=== PATIENT | male | born 1985 | race African-American/Black ===

== ENCOUNTER 2016-12-02 08:11 | Emergency (ER) | payer MEDICAID ==
[~2016-12-02] VITALS: Ht 182.9 cm; Wt 94.3 kg
[~2016-12-02 08:11] MED LIST: ALBU0.084 IN; FLUT250M2 INH; IPRA0.064; IPRAAER5 IN; PRE1T PO
[2016-12-02] MEDS ORDERED: methylPREDNISolone SOD SUCC 125 MG/2 ML VL IM ONE (09:00)
[2016-12-02] MEDS ORDERED: IBUPROFEN 800 MG TAB PO ONE (09:00)
[2016-12-02] MEDS ORDERED: IPRATROPIUM BROM 0.5 MG/2.5ML INH SOL NEB ONE (09:00)
[2016-12-02] MEDS ORDERED: ALBUTEROL SULF 2.5 MG/0.5ML(0.5%) NEB SOLN NEB ONE (09:00)
[2016-12-02 09:09] VITALS: BP 147/107
== END 2016-12-02 10:00 | disposition home or self-care (01) ==
LOC: ER 08:19
DX: J45.901 Unspecified asthma with (acute) exacerbation (principal); K08.89 Other specified disorders of teeth and supporting structures
CPT/HCPCS: 94640; 96372; 99283; J2930

== ENCOUNTER 2016-12-25 04:55 | Emergency (ER) | payer MEDICAID ==
[~2016-12-25] VITALS: Ht 185.4 cm; Wt 93.0 kg
[2016-12-25] MEDS ORDERED: IPRATROPIUM BROM 0.5 MG/2.5ML INH SOL NEB ONE ×2 (05:15→07:00)
[2016-12-25] MEDS ORDERED: ALBUTEROL SULF 2.5 MG/0.5ML(0.5%) NEB SOLN NEB ONE ×2 (05:15→07:00)
[2016-12-25] MEDS ORDERED: methylPREDNISolone SOD SUCC 125 MG/2 ML VL IM ONE (07:00)
[2016-12-25 07:30] VITALS: BP 158/99
== END 2016-12-25 08:09 | disposition home or self-care (01) ==
LOC: ER 05:00
DX: J45.901 Unspecified asthma with (acute) exacerbation (principal); Z76.0 Encounter for issue of repeat prescription
CPT/HCPCS: 94640; 96372; 99284; J2930

== ENCOUNTER 2017-03-14 18:34 | Emergency (ER) | payer MEDICAID ==
[~2017-03-14] VITALS: Ht 185.4 cm; Wt 95.3 kg
[2017-03-14] MEDS ORDERED: SODIUM CHLORIDE 0.9% 1,000 ML IV ONE ×2 (19:00→20:00)
[2017-03-14 19:23] LABS: Basophils # (auto) 0 uL; Basophils % (auto) 0.2 % (0.0-2.0); Eosinophils # (auto) 0 uL; Eosinophils % (auto) 0.1 % (0.0-7.0); Hematocrit 50.8 % (41.0-53.0); Hemoglobin 17.1 g/dL (13.5-17.5); Lymphocytes # (auto) 0.5 uL; Lymphocytes % (auto) 4.7 % (10.0-50.0); Mean Corpuscular Hemoglobin 30.4 pg (28.0-32.0); Mean Corpuscular Hgb Conc. 33.8 g/dL (32.0-36.0); Mean Platelet Volume 8.4 fL (7.4-10.4); Monocytes # (auto) 0.8 uL; Monocytes % (auto) 7.2 % (0.0-12.0); Neutrophils # (auto) 9.2 uL; Neutrophils % (auto) 87.8 % (37.0-80.0); Platelet Count (auto) 355 10^3/uL (140-450); Red Cell Distribution Width 12.6 % (11.6-16.0); White Blood Cell 10.5 10^3/uL (4.4-10.8)
[2017-03-14 19:38] LABS: Lactic Acid w/Reflex 3.3 mmol/L (0.4-2.0)
[2017-03-14 19:42] LABS: Albumin 4.1 g/dL (3.4-5.0); Alkaline Phosphatase 90 U/L (45-117); Anion Gap 13 (5-15); Aspartate Aminotransferase 24 U/L (15-37); BUN/Creatinine Ratio 12.8; Bilirubin, Total 1.7 mg/dL (0.2-1.0); Blood Urea Nitrogen 17 mg/dL (7-18); Carbon Dioxide 17 mmol/L (21-32); Chloride 106 mmol/L (98-107); GFR African American 81 mL/min; GFR Non-African American 67 mL/min; Glucose 150 mg/dL (74-106); Potassium 3.6 mmol/L (3.5-5.1); Sodium 136 mmol/L (136-145); Total Protein 8.1 g/dL (6.4-8.2)
[2017-03-14 19:52] LABS: REFLEX LACTIC ACID YES OR NO YES
[2017-03-14] MEDS ORDERED: ONDANSETRON HCL 4 MG/2 ML VIAL IV ONE (20:00)
[2017-03-14] MEDS ORDERED: IPRATROPIUM BROM 0.5 MG/2.5ML INH SOL NEB ONE (20:15)
[2017-03-14] MEDS ORDERED: ALBUTEROL SULF 2.5 MG/0.5ML(0.5%) NEB SOLN NEB ONE (20:15)
[2017-03-14 23:38] VITALS: BP 136/84
[2017-03-14] MEDS ORDERED: METOCLOPRAMIDE HCL 5MG/ml INJ 2ml VIAL IV ONE (23:45)
== END 2017-03-15 01:47 | disposition home or self-care (01) ==
LOC: ER 18:34
DX: T62.91XA Toxic effect of unspecified noxious substance eaten as food, accidental (unintentional), initial encounter (principal); E86.0 Dehydration; R55 Syncope and collapse; Z88.6 Allergy status to analgesic agent; J45.909 Unspecified asthma, uncomplicated; Y92.89 Other specified places as the place of occurrence of the external cause
CPT/HCPCS: 36415; 80053; 80307; 82962; 83605; 84484; 85025; 87040; 93005; 94640; 96361; 96374; 96375; 99285; J2405; J2765; J7030

== ENCOUNTER 2017-05-10 05:16 | Emergency (ER) | payer MEDICAID ==
[~2017-05-10] VITALS: Ht 182.9 cm; Wt 95.3 kg
[2017-05-10] MEDS ORDERED: IPRATROPIUM BROM 0.5 MG/2.5ML INH SOL NEB ONE ×2 (05:30→08:00)
[2017-05-10] MEDS ORDERED: ALBUTEROL SULF 2.5 MG/0.5ML(0.5%) NEB SOLN NEB ONE ×2 (05:30→08:00)
[2017-05-10 08:00] VITALS: BP 149/103
[2017-05-10] MEDS ORDERED: methylPREDNISolone SOD SUCC 125 MG/2 ML VL IM ONE (08:00)
[2017-05-11] MEDS ORDERED: MONT4CHW9 PO (04:56)
== END 2017-05-10 09:15 | disposition home or self-care (01) ==
LOC: ER 05:16
DX: J45.901 Unspecified asthma with (acute) exacerbation (principal)
CPT/HCPCS: 94640; 96372; 99284; J2930; J7030

== ENCOUNTER 2017-05-10 15:18 | Inpatient (IN) | payer MEDICAID ==
[~2017-05-10] VITALS: Ht 185.4 cm; Wt 96.0 kg
[2017-05-10] MEDS ORDERED: ALBUTEROL SULF 2.5 MG/0.5ML(0.5%) NEB SOLN NEB ONE ×4 (15:30→22:15)
[2017-05-10] MEDS ORDERED: IPRATROPIUM BROM 0.5 MG/2.5ML INH SOL NEB ONE (15:30)
[2017-05-10] MEDS ORDERED: methylPREDNISolone SOD SUCC 125 MG/2 ML VL IV ONE (15:30)
[2017-05-10] MEDS ORDERED: SODIUM CHLORIDE 0.9% 1,000 ML IV ONE ×2 (15:35)
[2017-05-10 15:47] LABS: Basophils # (auto) 0 uL; CONDITION Y; Eosinophils # (auto) 0 uL; Hematocrit 48.5 % (41.0-53.0); Hemoglobin 16.8 g/dL (13.5-17.5); Lymphocytes # (auto) 0.3 uL; Lymphocytes % (auto) 2.7 % (10.0-50.0); Mean Corpuscular Hemoglobin 31.1 pg (28.0-32.0); Mean Corpuscular Hgb Conc. 34.7 g/dL (32.0-36.0); Mean Corpuscular Volume 89.6 fL (80.0-100.0); Mean Platelet Volume 8.2 fL (7.4-10.4); Monocytes # (auto) 0 uL; Monocytes % (auto) 0.3 % (0.0-12.0); Neutrophils # (auto) 11.5 uL; Platelet Count (auto) 363 10^3/uL (140-450); White Blood Cell 11.9 10^3/uL (4.4-10.8)
[2017-05-10 15:57] LABS: INR 0.98 (0.9-1.15); Partial Thromboplastin Time 28.2 sec (22.64-33.71); Prothrombin Time 10.7 sec (9.37-12.3)
[2017-05-10 16:00] LABS: Albumin 4.4 g/dL (3.4-5.0); BUN/Creatinine Ratio 12.7; Calcium 9.4 mg/dL (8.5-10.1); Potassium 4.4 mmol/L (3.5-5.1)
[2017-05-10 16:03] LABS: Bilirubin, Total 0.7 mg/dL (0.2-1.0); Total Protein 8.8 g/dL (6.4-8.2)
[2017-05-10] MEDS ORDERED: cefTRIAXone 1GM/50ML D5W 50 ML IV ONE (17:15)
[2017-05-10] MEDS ORDERED: ALUM & MAG HYDROX-SIMETH LIQ(MAALOX) 30 ML PO PRN (17:45)
[2017-05-10] MEDS ORDERED: DOCUSATE SOD 100 MG CAP PO PRN (17:45)
[2017-05-10] MEDS ORDERED: ACETAMINOPHEN 325 MG TAB PO PRN (17:45)
[2017-05-10] MEDS ORDERED: ONDANSETRON HCL 4 MG/2 ML VIAL IV PRN (17:45)
[2017-05-10] MEDS: ALBUTEROL SULF 2.5 MG/0.5ML(0.5%) NEB SOLN NEB SCH ×2 (18:00→23:51)
[2017-05-10] MEDS ORDERED: methylPREDNISolone SOD SUCC 40 MG/ML VL IV SCH (18:00)
[2017-05-10] MEDS: SODIUM CHLORIDE 0.9% 1,000 ML IV SCH ×2 (18:40→19:40)
[2017-05-10] MEDS: HYDROcodone-ACET 5/325MG TAB PO PRN (21:06)
[2017-05-10] MEDS ORDERED: KETOROLAC TROMETH 30 MG/ML 1ML VIAL ONE (21:56)
[2017-05-10] MEDS ORDERED: KETOROLAC TROMETH 30 MG/ML 1ML VIAL IV ONE (22:00)
[2017-05-10] MEDS: BUDESONIDE (INHALATION) 0.5 MG/2 ML NEB NEB SCH (22:07)
[2017-05-10] MEDS ORDERED: ALBUTEROL SULF 2.5 MG/0.5ML(0.5%) NEB SOLN ONE (22:17)
[2017-05-11 00:14] VITALS: BP 150/99
[2017-05-11] MEDS: methylPREDNISolone SOD SUCC 40 MG/ML VL IV SCH ×5 (01:07→23:50)
[2017-05-11] MEDS: LORazepam 0.5 MG TAB PO PRN ×3 (01:48→18:08)
[2017-05-11] MEDS ORDERED: MONT4CHW9 PO (04:56)
[2017-05-11 05:51] VITALS: BP 149/90
[2017-05-11] MEDS: BUDESONIDE (INHALATION) 0.5 MG/2 ML NEB NEB SCH ×2 (06:25→22:51)
[2017-05-11] MEDS: ALBUTEROL SULF 2.5 MG/0.5ML(0.5%) NEB SOLN NEB SCH ×5 (06:25→22:50)
[2017-05-11 06:32] LABS: Basophils # (auto) 0 uL; Basophils % (auto) 0.1 % (0.0-2.0); CONDITION Y; Eosinophils # (auto) 0 uL; Hematocrit 43.5 % (41.0-53.0); Hemoglobin 14.9 g/dL (13.5-17.5); Lymphocytes # (auto) 0.9 uL; Lymphocytes % (auto) 8.8 % (10.0-50.0); Mean Corpuscular Hgb Conc. 34.2 g/dL (32.0-36.0); Mean Corpuscular Volume 90.7 fL (80.0-100.0); Mean Platelet Volume 8.6 fL (7.4-10.4); Monocytes # (auto) 0.3 uL; Monocytes % (auto) 2.5 % (0.0-12.0); Neutrophils # (auto) 9.1 uL; Neutrophils % (auto) 88.6 % (37.0-80.0); Platelet Count (auto) 324 10^3/uL (140-450); Red Cell Distribution Width 12.9 % (11.6-16.0); White Blood Cell 10.2 10^3/uL (4.4-10.8)
[2017-05-11 06:51] LABS: Potassium 4.1 mmol/L (3.5-5.1)
[2017-05-11 06:55] LABS: Albumin 3.8 g/dL (3.4-5.0); BUN/Creatinine Ratio 17.5; Calcium 8.7 mg/dL (8.5-10.1)
[2017-05-11 06:57] LABS: Bilirubin, Total 0.6 mg/dL (0.2-1.0); Total Protein 7.8 g/dL (6.4-8.2)
[2017-05-11 08:00] VITALS: BP 108/67
[2017-05-11] MEDS: cefTRIAXone 1GM/50ML D5W 50 ML IV SCH (10:37)
[2017-05-11 13:00] VITALS: BP 118/72
[2017-05-11] MEDS: HYDROcodone-ACET 5/325MG TAB PO PRN ×2 (13:56→18:08)
[2017-05-11] MEDS: SODIUM CHLORIDE 0.9% 1,000 ML IV SCH ×2 (13:57→23:47)
[2017-05-11 16:47] VITALS: BP 152/90
[2017-05-11 21:48] VITALS: BP 162/98
[2017-05-11] MEDS ORDERED: LACTULOSE 20Gm/30ML SOLN PO ONE (22:45)
[2017-05-11] MEDS ORDERED: KETOROLAC TROMETH 30 MG/ML 1ML VIAL IV PRN (22:45)
[2017-05-12] MEDS: ALBUTEROL SULF 2.5 MG/0.5ML(0.5%) NEB SOLN NEB SCH ×3 (02:38→10:06)
[2017-05-12] MEDS: methylPREDNISolone SOD SUCC 40 MG/ML VL IV SCH ×2 (05:04→11:22)
[2017-05-12 05:15] VITALS: BP 142/91
[2017-05-12 08:02] VITALS: BP 142/91
[2017-05-12 09:00] VITALS: BP 157/92
[2017-05-12] MEDS: BUDESONIDE (INHALATION) 0.5 MG/2 ML NEB NEB SCH (10:06)
[2017-05-12] MEDS: cefTRIAXone 1GM/50ML D5W 50 ML IV SCH (10:17)
[2017-05-12] MEDS: SODIUM CHLORIDE 0.9% 1,000 ML IV SCH (10:20)
[2017-05-12] MEDS ORDERED: BUDESONIDE (INHALATION) 0.5 MG/2 ML NEB NEB ONE (13:15)
[2017-05-12] MEDS ORDERED: ALBUTEROL SULF 2.5 MG/0.5ML(0.5%) NEB SOLN NEB ONE (13:15)
[2017-05-12 13:26] VITALS: BP 142/91
[2017-05-12] MEDS ORDERED: PRE5T GT (14:49)
== END 2017-05-12 13:50 | disposition home or self-care (01) | DRG 133 ==
LOC: ER 15:25 → TELE 15:26 → CENTRAL 19:37
PROVIDERS: ADMIT Internal Medicine; ATTEND Internal Medicine
DX: J96.01 Acute respiratory failure with hypoxia (principal); J45.41 Moderate persistent asthma with (acute) exacerbation; F41.9 Anxiety disorder, unspecified; Z82.5 Family history of asthma and other chronic lower respiratory diseases; Z82.49 Family history of ischemic heart disease and other diseases of the circulatory system; I25.10 Atherosclerotic heart disease of native coronary artery without angina pectoris; Z71.89 Other specified counseling; Z88.6 Allergy status to analgesic agent
CPT/HCPCS: 36415; 71020; 80053; 84484; 85025; 85610; 85730; 94640; 96361; 96365; 96375; J0696; J1885

== ENCOUNTER 2017-05-19 21:48 | Emergency (ER) | payer MEDICAID ==
[~2017-05-19] VITALS: Ht 182.9 cm; Wt 95.3 kg
[~2017-05-19 21:48] MED LIST changes: +MONT4CHW9 PO; -PRE1T PO; +PRE5T GT
[2017-05-19] MEDS ORDERED: IPRATROPIUM BROM 0.5 MG/2.5ML INH SOL NEB ONE (22:15)
[2017-05-19] MEDS ORDERED: methylPREDNISolone SOD SUCC 125 MG/2 ML VL IV ONE (22:15)
[2017-05-19] MEDS ORDERED: ALBUTEROL SULF 2.5 MG/0.5ML(0.5%) NEB SOLN NEB ONE (22:15)
[2017-05-20] MEDS ORDERED: IPRATROPIUM BROM 0.5 MG/2.5ML INH SOL NEB ONE ×2 (01:45→07:45)
[2017-05-20] MEDS ORDERED: ALBUTEROL SULF 2.5 MG/0.5ML(0.5%) NEB SOLN NEB ONE ×2 (01:45→07:45)
[2017-05-20 04:45] LABS: Basophils # (auto) 0 uL; Basophils % (auto) 0.1 % (0.0-2.0); CONDITION Y; Eosinophils # (auto) 0 uL; Hematocrit 46.2 % (41.0-53.0); Lymphocytes # (auto) 0.6 uL; Lymphocytes % (auto) 5.8 % (10.0-50.0); Mean Corpuscular Hemoglobin 31.3 pg (28.0-32.0); Mean Corpuscular Hgb Conc. 34.6 g/dL (32.0-36.0); Mean Corpuscular Volume 90.5 fL (80.0-100.0); Mean Platelet Volume 8.4 fL (7.4-10.4); Monocytes # (auto) 0.1 uL; Monocytes % (auto) 0.6 % (0.0-12.0); Neutrophils # (auto) 10.2 uL; Neutrophils % (auto) 93.5 % (37.0-80.0); Platelet Count (auto) 351 10^3/uL (140-450); Red Cell Distribution Width 12.3 % (11.6-16.0); White Blood Cell 10.9 10^3/uL (4.4-10.8)
[2017-05-20 04:58] LABS: Albumin 3.9 g/dL (3.4-5.0); Anion Gap 12 (5-15); Blood Urea Nitrogen 16 mg/dL (7-18); Calcium 8.8 mg/dL (8.5-10.1); Carbon Dioxide 21 mmol/L (21-32); Chloride 108 mmol/L (98-107); Glucose 149 mg/dL (74-106); Potassium 4.1 mmol/L (3.5-5.1); Sodium 141 mmol/L (136-145)
[2017-05-20 05:00] LABS: Aspartate Aminotransferase 22 U/L (15-37); GFR African American 113 mL/min; GFR Non-African American 93 mL/min
[2017-05-20 05:04] LABS: Alkaline Phosphatase 72 U/L (45-117); Bilirubin, Total 0.7 mg/dL (0.2-1.0); Total Protein 7.7 g/dL (6.4-8.2)
[2017-05-20 05:41] VITALS: BP 140/77
== END 2017-05-20 08:28 | disposition home or self-care (01) ==
LOC: ER 21:52
DX: J45.901 Unspecified asthma with (acute) exacerbation (principal); F12.10 Cannabis abuse, uncomplicated
CPT/HCPCS: 36415; 71010; 80053; 84484; 85025; 94640; 96374; 99285; J2930

== ENCOUNTER 2024-10-11 13:31 | Inpatient (IN) | payer MEDICAID ==
[~2024-10-11] VITALS: Ht 185.4 cm; Wt 112.5 kg
[~2024-10-11 13:31] MED LIST changes: +MONT4CHW74 PO; -MONT4CHW9 PO
--- NOTE | 2024-10-11 13:55 | ED.PDOC ---
GI ASSESSMENT HPI Comments 39 year old male presents to the ED with a chief complaint of abdominal pain onset 3 weeks ago. Patient states he began experiencing abdominal pain with distention and shortness of breath about 3 weeks ago. Patient is currently awaiting an appointment with a Digital Media Strategist, as he was told from prior hospitalizations he may have CHF. He is on Lasix 20 mg PO daily. For the past week he began taking 40 mg Lasix Po and noticed his shortness of breath improved and he is producing more urine but is still experiencing abdominal pain with distention, constipation, nausea. He also reports a 30 lb weight gain in the past 3 weeks. Past medical history of HTN, Asthma and denies chest pain, vomiting, diarrhea, headache, dizziness. No other symptoms or modifying factors present at this time. Time Seen by MD: 13:40 Primary Care Provider: LUBA Tavares Notes: Medications, Allergies Allergies: Coded Allergies: Aspirin (Unverified Allergy, Unknown, 10/06/16) Home Meds Active Scripts Prednisone (PREDNISONE) 5 Mg Tb, 5 MG GT DAILY, #5 Prov:SHARI VILLEGAS MD 05/12/17 Reported Medications Montelukast Sodium (Singulair) 4 Mg Chw, 1 TAB PO DAILY, #30 TAB 5 Refills 05/11/17 Fluticasone-Salmeterol (Advair Diskus 250/50) 1 Puff Ih, 1 PUFF INH BID, #3 INHALER 3 Refills 07/09/16 Ipratropium [place] (Atrovent) 0.06 % Daisy, 2 SPRAY NA QID, #15 ML 5 Refills 07/09/16 Ipratropium-Albuterol (Combivent) Aer, 1 IN, AER 07/09/16 Albuterol Sulfate (Albuterol Sulfate) 0.083 % Neb, 0.083 % IN 07/09/16 Information Source: Patient Mode of Arrival: Ambulatory Timing: Weeks Duration: Since onset Prehospital treatment: None Severity: Moderate Recent: None Recent Hx of: Constipation Pain Location: Diffuse Associated sign and symptoms: Nausea, Constipation, Abdominal Pain Past Medical History PAST MEDICAL HISTORY: Asthma, HTN Surgical History: Denies all surgeries Family History Family History: Unobtainable Social History Smoker: Non-Smoker Alcohol: Occasionally Drugs: Marijuana Lives In: Home Constitutional: denies: chills, diaphoresis, fatigue, fever, malaise, sweats, weakness, others EENTM: denies: blurred vision, double vision, ear bleeding, ear discharge, ear drainage, ear pain, ear ringing, eye pain, eye redness, hearing loss, mouth pain, mouth swelling, nasal discharge, nose bleeding, nose congestion, nose pain, photophobia, tearing, throat pain, throat swelling, voice changes, others Respiratory: reports: shortness of breath; denies: cough, hemoptysis, orthopnea, SOB at rest, SOB with excertion, stridor, wheezing, others Cardiovascular: denies: chest pain, dizzy spells, diaphoresis, Dyspnea on exertion, edema, irregular heart beat, left arm pain, lightheadedness, palpitations, PND, syncope, others Gastrointestinal: reports: abdomen distended, abdominal pain, constipated, nausea; denies: blood streaked bowels, diarrhea, dysphagia, difficulty swallowing, hematemesis, melena, poor appetite, poor fluid intake, rectal b leeding, rectal pain, vomiting, others Genitourinary: denies: burning, dysuria, flank pain, frequency, hematuria, incontinence, penile discharge, penile sore, pain, testicle pain, testicle swelling, urgency, others Neurological: denies: dizziness, fainting, headache, left sided numbness, left sided weakness, numbness, paresthesia, pre-existing deficit, right sided numbness, right sided weakness, seizure, speech problems, tingling, tremors, weakness, others Musculoskeletal: denies: back pain, gout, joint pain, joint swelling, muscle pain, muscle stiffness, neck pain, others Integumetry: denies: bruises, change in color, change in hair/nails, dryness, laceration, lesions, lumps, rash, wounds, others Allergic/Immunocompromised: denies: Difficulty Healing, Frequent Infections, Hi ves, Itching, others Hematologic/Lymphatic: denies: anemia, blood clots, easy bleeding, easy bruising, swollen glands, others Endocrine: denies: excessive hunger, excessive sweating, excessive thirst, excessive urination, flushing, intolerance to cold, intolerance to heat, unexplained weight gain, unexplained weight loss, others Psychiatric: denies: anxiety, bipolar disorder, depression, hopeless, panic disorder, schizophrenia, sleepless, suicidal, others All Other Systems: Reviewed and Negative Physical Exam General Appearance: No Apparent Distress HEENT: Other (Pupils symmetric, no facial asymmetry, moist mucous membranes) Neck: Full Range of Motion, Normal Inspection Respiratory: Lungs Clear, No Accessory Muscle Use, No Respiratory Distress, Normal Breath Sounds Cardiovascular: No Edema, No JVD, Regular Rate/Rhythm Breast Exam: Deferred Gastrointestinal: Distended, Tenderness (Generalized tenderness to palpation, greatest in the epigastric and bilateral upper quadrant areas) Genitalia: Deferred Pelvic: Deferred Rectal: Deferred Extremities: Normal inspection, Normal range of motion, Non-tender, No pedal edema Neurologic: Alert (Oriented x4), Normal Affect, Normal Mood, Other ( Ambulatory without difficulty. No gross focal deficit.) Cerebellar Function: NOT DONE Reflexes: NOT DONE Skin: Dry, Normal Color, Warm Lymphatic: NOT DONE Was a procedure done? Was a procedure done?: No GI differential Dx Differential Diagnosis: Constipation, Diverticular disease, Gastroenteritis, Inflammatory BD, Urinary Obstruction, UTI, Electrolyte Imbalance, Food Poisoning, Bacterial, Parasitic, Viral, Impaction, Renal Failure Other Differential Diagnosis Fluid retention/ascites, CHF exacerbation, among others X-Ray, Labs, Meds, VS Vital Signs Date Time Temp Pulse Resp B/P (MAP) Pulse Ox O2 Delivery O2 Flow Rate FiO2 10/11/24 14:59 130/90 10/11/24 14:59 107 18 130/90 10/11/24 14:51 105 18 130/90 (103) 96 10/11/24 14:51 105 18 96 Room Air 10/11/24 14:28 98.5 104 16 136/91 (106) 97 Lab Test 10/11/24 15:22 10/11/24 14:12 Range/Units Troponin I High Sensitivity 14 12 </=54 ng/L White Blood Count 10.3 4.4-10.8 10^3/uL Red Blood Count 4.98 4.5-5.90 10^6/uL Hemoglobin 15.7 13.5-17.5 g/dL Hematocrit 45.4 41.0-53.0 % Mean Corpuscular Volume 91.2 80.0-100.0 fL Mean Corpuscular Hemoglobin 31.6 28.0-32.0 pg Mean Corpuscular Hemoglobin Concent 34.7 32.0-36.0 g/dL Red Cell Distribution Width 13.2 11.8-14.3 % Platelet Count 310 140-450 10^3/uL Mean Platelet Volume 8.5 6.9-10.8 fL Neutrophils (%) (Auto) 66.7 37.0-80.0 % Lymphocytes (%) (Auto) 22.8 10.0-50.0 % Monocytes (%) (Auto) 6.4 0.0-12.0 % Eosinophils (%) (Auto) 2.9 0.0-7.0 % Basophils (%) (Auto) 1.2 0.0-2.0 % Neutrophils # (Auto) 6.9 1.6-8.6 10 ^3/uL Lymphocytes # (Auto) 2.4 0.4-5.4 10 ^3/uL Monocytes # (Auto) 0.7 0-1.3 10 ^3/uL Eosinophils # (Auto) 0.3 0-0.8 10 ^3/uL Basophils # (Auto) 0.1 0-0.2 10 ^3/uL Nucleated Red Blood Cells 0.1 % Sodium Level 140 136-145 mmol/L Potassium Level 4.3 3.5-5.1 mmol/L Chloride Level 106 98-107 mmol/L Carbon Dioxide Level 24 20-31 mmol/L Anion Gap 10 5-15 Blood Urea Nitrogen 14 9-23 mg/dL Creatinine 1.01 0.700-1.30 mg/dL Glomerular Filtration Rate Calc 98 >90 mL/min BUN/Creatinine Ratio 13.9 10.0-20.0 Serum Glucose 108 H 74-106 mg/dL Calcium Level 10.2 8.7-10.4 mg/dL Total Bilirubin 1.2 H 0.2-1.0 mg/dL Aspartate Amino Transferase (AST) 26 13-40 U/L Alanine Aminotransferase (ALT) 66 H 7-40 U/L Alkaline Phosphatase 97 46-116 U/L B-Type Natriuretic Peptide 265.44 0-100 pg/mL Total Protein 7.3 5.7-8.2 g/dL Albumin 4.7 3.2-4.8 g/dL Lipase 61 H 12-53 U/L Current Medications Medications (Trade) Dose Ordered Sig/Gi Route Start Time Stop Time Status Last Admin Morphine Sulfate 4 mg ONCE ONCE IV 10/11/24 14:00 10/11/24 14:01 DC 10/11/24 14:59 Ondansetron HCl (Zofran) 4 mg ONCE ONCE IV 10/11/24 14:00 10/11/24 14:01 DC 10/11/24 14:57 Furosemide (Lasix Injection) 40 mg ONCE ONCE IV 10/11/24 14:00 10/11/24 14:01 DC 10/11/24 14:59 PROCEDURE(s): ABPL - CT AB PEL WO CON-NO ORAL OR IV REASON: abdominal pain and distention ORDER NUMBER(s): [id number], ACCESSION NUMBER(s): [id number] Procedure: CT CT AB PEL WO CON-NO ORAL OR IV 10/11/2024 02:15 PM Indication: abdominal pain and distention Comparison Study: None available at time of dictation. Technique: Axial images were obtained and reformatted in coronal and sagittal planes. All CT scans at this medical facility are performed using dose modulation techniques as appropriate to a performed exam including the following: Automated exposure control was utilized; adjustment of the MA and/or KV according to patient size; and use of iterative reconstruction technique. CT Dose: CTDI volume is 22.57 mGy. Dose-length product is 1174.58 mGy*cm FINDINGS: Lower Chest: Trace right pleural effusion. Mild cardiomegaly. No pulmonary opacity. Hepatobiliary: Unremarkable. Spleen: Unremarkable. Pancreas: Unremarkable. Adrenal Glands: Unremarkable. tract: The kidneys are normal in size bilaterally without hydronephrosis . A 6 mm obstructing stone is seen midpole right kidney. The urinary bladder is unremarkable. GI tract: The stomach is grossly normal in appearance. No evidence of small bowel obstruction. The large bowel is unremarkable. The appendix is normal. Lymphatics: No mesenteric, retroperitoneal or periportal lymphadenopathy. Vasculature: The abdominal aorta is normal in in caliber. Pelvic Organs: Unremarkable Bones/soft tissues: No acute abnormality. Old healed fracture of the right pubic rami the left sacrum. A metallic clip noted in the left iliac bone. Other: None. IMPRESSION: 1. No CT evidence for acute intra-abdominal or intrapelvic process. 2. Trace right pleural effusion. No evidence of pneumonia. Mild cardiomegaly noted. X-Ray, Labs, Meds, VS Comment 39-year-old male with a history of asthma, hypertension and possible CHF complaining of abdominal pain, distention and fluid retention/weight gain despite taking Lasix Vitals remarkable for heart rate 104, BP 136/91 Exam remarkable for abdominal distention and upper abdominal tenderness to palpation. Rhythm strip currently interpreted by me: Sinus rhythm, rate 107, no ectopy. CT abdomen and pelvis: IMPRESSION: 1. No CT evidence for acute intra-abdominal or intrapelvic process. 2. Trace right pleural effusion. No evidence of pneumonia. Mild cardiomegaly noted. CBC normal, comprehensive metabolic panel remarkable for total bilirubin 1.2, ALT 66, otherwise normal Troponin negative BNP 265.44 Lipase 61 Patient treated with the following in the ED: Lasix 40 mg IV, morphine 4 mg IV, Zofran 4 mg IV On re-evaluation, patient states his pain has improved. Vitals are stable. Plan is to admit the patient for Cardiology and GI evaluation. Time of 1ST Reevaluation: 14:10 Reevaluation 1ST: Unchanged Patient Education/Counseling: Diagnosis, Treatment, Prognosis Family Education/Counseling: No Family Present Additional Information HI Data VOL/Complexity Ordered tests: LAB, PHA, CT, reviewed results: TROP, TROP, TROP, CBC, CMP, LIPASE, UA, BNP Interpreted results: CT Discuss tx/ results: patient, medical personnel Departure 1 Departure Time of Disposition: 17:00 Impression: Primary Impression: CHF (congestive heart failure) Qualified Codes: I50.9 - Heart failure, unspecified Additional Impression: Pancreatitis, acute Qualified Codes: K85.90 - Acute pancreatitis without necrosis or infection, unspecified Disposition: 09 ADMITTED INPATIENT Admit to: Med Surg Condition: Fair Critical Care Note Critical Care Time?: No Stability Stability form required: No Heart Score Heart Score: Heart Score Response (Comments) Value History N/A 0 EKG N/A 0 Age N/A 0 Risk Factors N/A 0 Troponin N/A 0 Total 0 I personally scribed for JACKELIN LOWE MD ([email or web address]) on 10/11/24 at 13:55. Electronically submitted by Silvia Cruz ([email or web address]). I personally scribed for JACKELIN LOWE MD ([email or web address]) on 10/11/24 at 13:58. Electronically submitted by Silvia Cruz ([email or web address]). JACKELIN LOWE MD Oct 11, 2024 13:55
[2024-10-11 14:39] LABS: Basophils # (auto) 0.1 10 ^3/uL (0-0.2); Basophils % (auto) 1.2 % (0.0-2.0); Eosinophils # (auto) 0.3 10 ^3/uL (0-0.8); Eosinophils % (auto) 2.9 % (0.0-7.0); Hematocrit 45.4 % (41.0-53.0); Hemoglobin 15.7 g/dL (13.5-17.5); Lymphocytes # (auto) 2.4 10 ^3/uL (0.4-5.4); Lymphocytes % (auto) 22.8 % (10.0-50.0); Mean Corpuscular Hemoglobin 31.6 pg (28.0-32.0); Mean Corpuscular Hgb Conc. 34.7 g/dL (32.0-36.0); Mean Corpuscular Volume 91.2 fL (80.0-100.0); Monocytes # (auto) 0.7 10 ^3/uL (0-1.3); Monocytes % (auto) 6.4 % (0.0-12.0); Neutrophils # (auto) 6.9 10 ^3/uL (1.6-8.6); Neutrophils % (auto) 66.7 % (37.0-80.0); Nucleated Red Blood Cells % 0.1 %; Platelet Count (auto) 310 10^3/uL (140-450); Red Blood Cells 4.98 10^6/uL (4.5-5.90); Red Cell Distribution Width 13.2 % (11.8-14.3); White Blood Cell 10.3 10^3/uL (4.4-10.8)
[2024-10-11] MEDS: ONDANSETRON HCL 4 MG/2 ML VIAL IV ONE (14:57)
[2024-10-11 14:58] LABS: Albumin 4.7 g/dL (3.2-4.8); Alkaline Phosphatase 97 U/L (46-116); Anion Gap 10 (5-15); Aspartate Aminotransferase 26 U/L (13-40); BUN/Creatinine Ratio 13.9 (10.0-20.0); Blood Urea Nitrogen 14 mg/dL (9-23); Calcium 10.2 mg/dL (8.7-10.4); Carbon Dioxide 24 mmol/L (20-31); Chloride 106 mmol/L (98-107); Potassium 4.3 mmol/L (3.5-5.1); Sodium 140 mmol/L (136-145); Total Protein 7.3 g/dL (5.7-8.2)
[2024-10-11] MEDS: MORPHINE SULFATE 4 MG/ML SYR/VIAL IV ONE (14:59)
[2024-10-11] MEDS: FUROSEMIDE 40 MG/4 ML VIAL IV ONE (14:59)
[2024-10-11 15:01] LABS: Alanine Aminotransferase 66 U/L (7-40); Bilirubin, Total 1.2 mg/dL (0.2-1.0); Glucose 108 mg/dL (74-106); Lipase 61 U/L (12-53)
--- NOTE | 2024-10-11 15:49 | DVH ---
Procedure: CT CT AB PEL WO CON-NO ORAL OR IV 10/11/2024 02:15 PM Indication: abdominal pain and distention Comparison Study: None available at time of dictation. Technique: Axial images were obtained and reformatted in coronal and sagittal planes. All CT scans at this medical facility are performed using dose modulation techniques as appropriate t o a performed exam including the following: Automated exposure control was utilized; adjustment of th e MA and/or KV according to patient size; and use of iterative reconstruction technique. CT Dose: CTDI volume is 22.57 mGy. Dose-length product is 1174.58 mGy*cm FINDINGS: Lower Chest: Trace right pleural effusion. Mild cardiomegaly. No pulmonary opacity. Hepatobiliary: Unremarkable. Spleen: Unremarkable. Pancreas: Unremarkable. Adrenal Glands: Unremarkable. tract: The kidneys are normal in size bilaterally without hydronephrosis . A 6 mm obstructing sto ne is seen midpole right kidney. The urinary bladder is unremarkable. GI tract: The stomach is grossly normal in appearance. No evidence of small bowel obstruction. The la rge bowel is unremarkable. The appendix is normal. Lymphatics: No mesenteric, retroperitoneal or periportal lymphadenopathy. Vasculature: The abdominal aorta is normal in in caliber. Pelvic Organs: Unremarkable Bones/soft tissues: No acute abnormality. Old healed fracture of the right pubic rami the left sacrum . A metallic clip noted in the left iliac bone. Other: None. IMPRESSION: 1. No CT evidence for acute intra-abdominal or intrapelvic process. 2. Trace right pleural effusion. No evidence of pneumonia. Mild cardiomegaly noted.
[2024-10-11] MEDS ORDERED: ONDANSETRON HCL 4 MG/2 ML VIAL IV PRN (19:45)
[2024-10-11] MEDS ORDERED: ACETAMINOPHEN 325 MG TAB PO PRN (19:45)
[2024-10-11 20:11] VITALS: BP 127/86; PULSE 94; RESP 20; TEMP 98.2; O2SAT 99
[2024-10-11] MEDS ORDERED: IPRATROPIUM BROM 0.5 MG/2.5ML INH SOL NEB PRN (20:15)
[2024-10-11] MEDS ORDERED: SENNA 8.6 MG TAB PO PRN (20:15)
--- NOTE | 2024-10-11 20:56 | DVH ---
EXAM: XY CHEST PORTABLE CLINICAL HISTORY: admission TECHNIQUE: Single AP view of the chest WID: COMPARISON: None FINDINGS: Lines and tubes: No Chest: Mild cardiomegaly and mild pulmonary vascular congestion No pleural effusion, pneumothorax, or consolidation. The osseous structures are grossly intact. IMPRESSION: Mild cardiomegaly and pulmonary vascular congestion
[2024-10-11 21:00] LABS: INR 1.18 (0.9-1.15); Prothrombin Time 12.4 sec (9.3-11.8)
--- NOTE | 2024-10-11 22:10 | DVH ---
US ABDOMEN COMPLETE SONOGRAM HISTORY: elevated lipase, abdominal pain COMPARISON: None TECHNIQUE: Transverse and longitudinal grayscale and color sonographic images were obtained of the ab domen. FINDINGS: Liver: - Size: 18.0 cm - Echogenicity: Heterogenous - Surface Contour: Smooth - Liver Lesion(s): None - Portal Vein: Patent and forward flowing. - Bile Ducts: Normal. The common bile duct measures 3.9 mm. Gallbladder: Sludge is visualized.. The sonographic Ash sign is negative. Pancreas: Not seen. Spleen: - Size: 9.8 cm Kidneys: - Right kidney size: 9.3 cm. There is no hydronephrosis, renal calculi, or mass lesion. - Left kidney size: 11.9 cm. There is no hydronephrosis, renal calculi, or mass lesion. Aorta and Inferior Vena Cava: The visualized portions of the abdominal aorta and intrahepatic vena ca va are normal. Other: None IMPRESSION: Gallbladder sludge visualized.
--- NOTE | 2024-10-12 02:12 | DVHHP2 ---
Admitting Diagnosis: CHF, Fluid overload History of Present Illness History Source: Patient Exam Limitations: No limitations HPI Mr. Festus Davis is a 39 year old male with a history of hypertension and asthma presents with a chief complaint of abdominal pain onset 3 weeks ago. Patient states he began experiencing abdominal pain with distention and shortness of breath about 3 weeks ago. Patient is currently awaiting an appointment with a Ammunition Components Inspector, as he was told from prior hospitalizations he may have CHF. He is on Lasix 20 mg PO daily. For the past week he began taking 40 mg Lasix Po and noticed his shortness of breath improved and he is producing more urine but is still experiencing abdominal pain with distention, constipation, nausea. He also reports a 30 lb weight gain in the past 3 weeks. Patient denies chest pain, vomiting, diarrhea, headache, dizziness. Home Meds Active Scripts Prednisone (PREDNISONE) 5 Mg Tb, 5 MG GT DAILY, #5 Prov:SHARI VILLEGAS MD 05/12/17 Reported Medications Montelukast Sodium (Singulair) 4 Mg Chw, 1 TAB PO DAILY, #30 TAB 5 Refills 05/11/17 Fluticasone-Salmeterol (Advair Diskus 250/50) 1 Puff Ih, 1 PUFF INH BID, #3 INHALER 3 Refills 07/09/16 Ipratropium [place] (Atrovent) 0.06 % Daisy, 2 SPRAY NA QID, #15 ML 5 Refills 07/09/16 Ipratropium-Albuterol (Combivent) Aer, 1 IN, AER 07/09/16 Albuterol Sulfate (Albuterol Sulfate) 0.083 % Neb, 0.083 % IN 07/09/16 Past Medical History Cardiac: HTN Pulmonary: Asthma Central Nervous System: No pertinent Hx GI: No pertinent Hx Hemotology/Oncology: No pertinent Hx Hepatobiliary: No pertinent Hx Psychiatric: No pertinent Hx Musculoskeletal: No pertinent Hx Rheumotologic: No pertinent Hx Infectious Disease: No peritnent Hx ENT: No pertinent Hx Renal/: No pertinent Hx Endocrine: No pertinent Hx Dermatology: No pertinent Hx Patient Family History: Family history: Asthma G8 FATHER Family history: Hypertension G8 MOTHER G8 FATHER Smoker: No Hx (Negative) Alocohol: None Drugs: None Lives with: With family Domestic Violence: Neg Review of Systems Constitutional: Other (weight gain 30 lbs in 3 weeks) Ears, Nose, & Throat: No symptom reported Eyes: No symptom reported Pulmonary/Respiratory: No symptom reported Cardiovascular: No symptom reported Gastrointestinal: Abdominal Pain Genitourinary: No symptom reported Musculoskeletal: No symptom reported Skin: No symptom reported Psychiatric: No symptom reported Endocrine: No symptom reported Hemotologic/Lymphatic: No symptom reported H&P Exam Vital Signs Vital Signs Date Time Temp Pulse Resp B/P (MAP) Pulse Ox O2 Delivery O2 Flow Rate FiO2 10/11/24 20:11 98.2 94 20 127/86 99 21 98.2 10/11/24 14:51 Room Air General Appeara: Well developed, Well nourished, Normal Appearance Head Exam: Normal inspection Neck Exam: Normal inspection, Non-tender, Normal alignment Eye Exam: bilateral eye Normal inspection, bilateral eye PERRL, bilateral eye EOMI Ear Exam: bilateral ear Auricle normal Nasal Exam: Normal inspection Mouth: Normal Inspection Pulmonary/Respiratory: Normal inspection, Normal breath sounds, Chest non- tender, Lungs clear Cardiovascular/Chest: Normal inspection, Regular rate, Normal Rhythm Peripheral Pulses: 2+ dorsalis pedis (R), 2+ dorsalis pedis (L), 2+ Radial (R), 2+ Radial (L) Abdominal Exam: Normal bowel sounds, Other (distended ) Abdominal Pain Onset Location: Generalized abdomen Rectal Exam: Deferred Back Exam: Normal inspection Male Genital Exam: Not done Legs: bilateral leg non-tender, bilateral leg normal inspection, bilateral leg normal range of motion Tendon/ Neuro: Normal sensation, Normal motor function VENEER STOCK LAYER Exam: Normal hearing, Normal speech, PERRL Motor/Sensory: Normal sensory function, Normal motor function Neuro/Mental St: Alert, Oriented Appearance: Appropriate appearance, Appropriate insight Eye contact/ Speech: Cooperative, Good eye contact, Normal speech Thoughts/Psych: Normal thought pattern Skin Exam: Normal inspection, Normal color, Warm/dry Labs/Xrays Labs Test 10/12/24 00:20 10/11/24 20:30 10/11/24 14:12 Range/Units Troponin I High Sensitivity 15 </=54 ng/L Prothrombin Time 12.4 H 9.3-11.8 sec Prothrombin Time INR 1.18 H 0.9-1.15 White Blood Count 10.3 4.4-10.8 10^3/uL Red Blood Count 4.98 4.5-5.90 10^6/uL Hemoglobin 15.7 13.5-17.5 g/dL Hematocrit 45.4 41.0-53.0 % Mean Corpuscular Volume 91.2 80.0-100.0 fL Mean Corpuscular Hemoglobin 31.6 28.0-32.0 pg Mean Corpuscular Hemoglobin Concent 34.7 32.0-36.0 g/dL Red Cell Distribution Width 13.2 11.8-14.3 % Platelet Count 310 140-450 10^3/uL Mean Platelet Volume 8.5 6.9-10.8 fL Neutrophils (%) (Auto) 66.7 37.0-80.0 % Lymphocytes (%) (Auto) 22.8 10.0-50.0 % Monocytes (%) (Auto) 6.4 0.0-12.0 % Eosinophils (%) (Auto) 2.9 0.0-7.0 % Basophils (%) (Auto) 1.2 0.0-2.0 % Neutrophils # (Auto) 6.9 1.6-8.6 10 ^3/uL Lymphocytes # (Auto) 2.4 0.4-5.4 10 ^3/uL Monocytes # (Auto) 0.7 0-1.3 10 ^3/uL Eosinophils # (Auto) 0.3 0-0.8 10 ^3/uL Basophils # (Auto) 0.1 0-0.2 10 ^3/uL Nucleated Red Blood Cells 0.1 % Sodium Level 140 136-145 mmol/L Potassium Level 4.3 3.5-5.1 mmol/L Chloride Level 106 98-107 mmol/L Carbon Dioxide Level 24 20-31 mmol/L Anion Gap 10 5-15 Blood Urea Nitrogen 14 9-23 mg/dL Creatinine 1.01 0.700-1.30 mg/dL Glomerular Filtration Rate Calc 98 >90 mL/min BUN/Creatinine Ratio 13.9 10.0-20.0 Serum Glucose 108 H 74-106 mg/dL Calcium Level 10.2 8.7-10.4 mg/dL Magnesium Level 1.9 1.6-2.6 mg/dL Total Bilirubin 1.2 H 0.2-1.0 mg/dL Aspartate Amino Transferase (AST) 26 13-40 U/L Alanine Aminotransferase (ALT) 66 H 7-40 U/L Alkaline Phosphatase 97 46-116 U/L B-Type Natriuretic Peptide 265.44 0-100 pg/mL Total Protein 7.3 5.7-8.2 g/dL Albumin 4.7 3.2-4.8 g/dL Lipase 61 H 12-53 U/L Assessment/Plan Problem List: (1) Fluid overload (2) CHF (congestive heart failure) Plan 39 yo male with known history of hypertension, and asthma presents with abdominal pain x3 weeks and weight gain. Patient found to have 1. New onset CHF 2. Fluid overload Admit Telemetry unit Cardiology consultation, 2D echocardiogram, IV diuresis Furosemide Fluid Restriction/strict I&O's Monitor electrolytes replenish as needed cardiac diet Discussed all above with patient who verbalizes agreement and understanding of care plan. All questions were answered. Discussed assessment and care plan with supervising MD. Plan discussed with: Patient, Other Code Visit Code Visit Total Time (mins): 45 Additional Comments Additional Comments Additional Comments Patient was seen and evaluated by me. There was no evidence of any congestive heart failure. Patient was abdominal pain has been resolved. SYLVESTER SANTOS Oct 12, 2024 02:12 JÚNIOR MENA MD Oct 16, 2024 15:56
[2024-10-12] MEDS: MELATONIN 5 MG TAB PO ONE (04:08)
[2024-10-12] MEDS: FUROSEMIDE 40 MG/4 ML VIAL IV SCH (04:19)
[2024-10-12 04:20] VITALS: PULSE 82; RESP 16; O2SAT 100
[2024-10-12 08:32] LABS: Chloride 105 mmol/L (98-107); Potassium 4.2 mmol/L (3.5-5.1); Sodium 140 mmol/L (136-145)
[2024-10-12 08:33] LABS: Anion Gap 10 (5-15); Carbon Dioxide 25 mmol/L (20-31)
[2024-10-12] MEDS: HYDROcodone-ACET 5/325MG TAB PO PRN (08:36)
[2024-10-12 08:38] LABS: Glucose 82 mg/dL (74-106)
[2024-10-12 08:39] LABS: BUN/Creatinine Ratio 14.1 (10.0-20.0); Blood Urea Nitrogen 13 mg/dL (9-23)
[2024-10-12 09:32] VITALS: PULSE 88; RESP 17; O2SAT 100
[2024-10-12 09:39] VITALS: O2SAT 96
[2024-10-12] MEDS: FAMOTIDINE 20 MG TAB PO SCH (10:31)
[2024-10-12 13:04] VITALS: TEMP 97.7
[2024-10-12 15:20] VITALS: BP 113/76; PULSE 92; RESP 17; O2SAT 94
--- NOTE | 2024-10-12 17:17 | DVHDS2 ---
Discharge Summary Date of Admission Oct 11, 2024 at 19:44 Date of Discharge: Oct 12, 2024 Labs/Diagnostic Data: Laboratory Results Test 10/12/24 07:46 10/12/24 00:20 10/11/24 20:30 10/11/24 14:12 Sodium Level 140 mmol/L (136-145) Potassium Level 4.2 mmol/L (3.5-5.1) Chloride Level 105 mmol/L (98-107) Carbon Dioxide Level 25 mmol/L (20-31) Anion Gap 10 (5-15) Blood Urea Nitrogen 13 mg/dL (9-23) Creatinine 0.92 mg/dL (0.700-1.30) Glomerular Filtration Rate Calc 109 mL/min (>90) BUN/Creatinine Ratio 14.1 (10.0-20.0) Serum Glucose 82 mg/dL (74-106) Calcium Level 10.0 mg/dL (8.7-10.4) Troponin I High Sensitivity 15 ng/L (</=54) Prothrombin Time 12.4 sec (9.3-11.8) Prothrombin Time INR 1.18 (0.9-1.15) White Blood Count 10.3 10^3/uL (4.4-10.8) Red Blood Count 4.98 10^6/uL (4.5-5.90) Hemoglobin 15.7 g/dL (13.5-17.5) Hematocrit 45.4 % (41.0-53.0) Mean Corpuscular Volume 91.2 fL (80.0-100.0) Mean Corpuscular Hemoglobin 31.6 pg (28.0-32.0) Mean Corpuscular Hemoglobin Concent 34.7 g/dL (32.0-36.0) Red Cell Distribution Width 13.2 % (11.8-14.3) Platelet Count 310 10^3/uL (140-450) Mean Platelet Volume 8.5 fL (6.9-10.8) Neutrophils (%) (Auto) 66.7 % (37.0-80.0) Lymphocytes (%) (Auto) 22.8 % (10.0-50.0) Monocytes (%) (Auto) 6.4 % (0.0-12.0) Eosinophils (%) (Auto) 2.9 % (0.0-7.0) Basophils (%) (Auto) 1.2 % (0.0-2.0) Neutrophils # (Auto) 6.9 10 ^3/uL (1.6-8.6) Lymphocytes # (Auto) 2.4 10 ^3/uL (0.4-5.4) Monocytes # (Auto) 0.7 10 ^3/uL (0-1.3) Eosinophils # (Auto) 0.3 10 ^3/uL (0-0.8) Basophils # (Auto) 0.1 10 ^3/uL (0-0.2) Nucleated Red Blood Cells 0.1 % Magnesium Level 1.9 mg/dL (1.6-2.6) Total Bilirubin 1.2 mg/dL (0.2-1.0) Aspartate Amino Transferase (AST) 26 U/L (13-40) Alanine Aminotransferase (ALT) 66 U/L (7-40) Alkaline Phosphatase 97 U/L (46-116) B-Type Natriuretic Peptide 265.44 pg/mL (0-100) Total Protein 7.3 g/dL (5.7-8.2) Albumin 4.7 g/dL (3.2-4.8) Lipase 61 U/L (12-53) Other Laboratory Tests 10/12/24 07:46 10/11/24 14:12 Brief Hx & Hospital Course: 79-year-old male with a no significant past medical history presented to the hospital with the abdominal pain found to have gallbladder sludge but no evidence of any acute cholecystitis. Patient was was complaining of some shortness of breaths eventually diagonal with congestive heart failure. Cardiology was insulin but patient was not have any CHF. Patient was abdominal pain has been resolved and he is tolerating diet. Patient was being discharged under stable condition with close follow up as an outpatient with the PCP and return to ER if there is any concern Condition at Discharge: Stable Final Diagnosis/Problems List 1. Abdominal pain unspecified resolved 2. Hypertension 3. Chronic asthma Discharge Disposition: Home SNF Discharge Will this Physician continue t: No Discharge Instruct/Medications Diet: Cardiac 2g Na,low cholest Activity: No Restrictions, As Tolerated Follow Up/Referral: Follow up with the PCP in 1-2 weeks Medications: Resume home medications Discharge Statement: "Patient was advised to return to the ER or call 911 if any headaches, dizziness, shortness of breath, chest pain, abdominal pain, bleeding, fevers, or worsening of medical condition. Patient was counseled about treatment plan, medications, possible side effects, patientverbalized understanding. All questions were answered to the best of my ability. This discharge took greater then 30 minutes in planning, reviewing documentation, counseling the patient, and discussing with other team members." ASSESSMENT ASSESSMENT Assessment 1. Abdominal pain unspecified resolved 2. Hypertension 3. Chronic asthma Date of Service: Oct 12, 2024 Billing Provider: JÚNIOR MENA MD Common Visit Codes: NOT BILLABLE JÚNIOR MENA MD Oct 12, 2024 17:17
== END 2024-10-12 18:39 | disposition home or self-care (01) | DRG 241 ==
LOC: ER 13:31 → TELE 19:44
PROVIDERS: ADMIT Nurse Practitioner Family; ATTEND Nurse Practitioner Family
DX: K29.70 Gastritis, unspecified, without bleeding (principal); I50.33 Acute on chronic diastolic (congestive) heart failure; J45.909 Unspecified asthma, uncomplicated; I11.0 Hypertensive heart disease with heart failure; Z88.6 Allergy status to analgesic agent; Z79.899 Other long term (current) drug therapy; Z82.5 Family history of asthma and other chronic lower respiratory diseases; Z82.49 Family history of ischemic heart disease and other diseases of the circulatory system; K59.00 Constipation, unspecified
CPT/HCPCS: 36415; 71045; 74176; 76700; 80048; 80053; 83690; 83735; 83880; 84484; 85025; 85610; G0378; J2405

== ENCOUNTER 2025-08-06 16:05 | Inpatient (IN) | payer MEDICAID ==
[~2025-08-06] VITALS: Ht 185.4 cm; Wt 124.6 kg
--- NOTE | 2025-08-06 16:22 | ECG ---
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
[2025-08-06] MEDS: FUROSEMIDE 40 MG/4 ML VIAL IV ONE ×3 (16:46→23:37)
--- NOTE | 2025-08-06 16:52 | DVH ---
CHEST RADIOGRAPH Indication: sob Technique: Single frontal view of the chest was obtained Comparison: XY CHEST PORTABLE on DOS: 10/11/24, CH-CHEST 1V on DOS: 12/26/19 FINDINGS: Lines and Tubes: None Lungs: Mild pulmonary vascular congestion Pleura: No effusion. No pneumothorax. Cardiomediastinal contours: Marginal cardiomegaly unchanged from 05/2024. Bones: No acute osseous abnormality. IMPRESSION: 1. Cardiomegaly and mild pulmonary vascular congestion. 2. Correlate clinically. Congestive failure unlikely in a 40-year-old patient. HS:Y
--- NOTE | 2025-08-06 16:54 | ED.PDOC ---
History of Present Illness HPI Comments This is a 40-year-old male who comes in with chief complaint of shortness a breath. The patient states that over the past 10 days he has been having shortness a breath as well as palpitations and a cough. The patient states that his ejection fraction is approximately 30%. He does have a history of CHF and s tates that despite his Lasix he seems to be getting more short of breath. He has gained approximately 40 lb and 10 days. Patient denies any leg swelling Chief Complaint: Shortness of Breath Time Seen by MD: 16:09 Primary Care Provider: LUBA Reviewed Notes: Nurses Notes, Medications, Allergies (No allergies to medication) Allergies: Coded Allergies: NO KNOWN ALLERGIES (Unverified , 08/06/25) Home Meds Active Scripts Prednisone (PREDNISONE) 5 Mg Tb, 5 MG GT DAILY, #5 Prov:SHARI VILLEGAS MD 05/12/17 Reported Medications Montelukast Sodium (Singulair) 4 Mg Chw, 1 TAB PO DAILY, #30 TAB 5 Refills 05/11/17 Fluticasone-Salmeterol (Advair Diskus 250/50) 1 Puff Ih, 1 PUFF INH BID, #3 INHALER 3 Refills 07/09/16 Ipratropium [place] (Atrovent) 0.06 % Daisy, 2 SPRAY NA QID, #15 ML 5 Refills 07/09/16 Ipratropium-Albuterol (Combivent) Aer, 1 IN, AER 07/09/16 Albuterol Sulfate (Albuterol Sulfate) 0.083 % Neb, 0.083 % IN 07/09/16 Information Source: Patient Mode of Arrival: Ambulatory Severity: Moderate Timing: Days (Symptoms started 10 days ago) Duration: Since onset Prehospital treatment: None Associated signs and symptoms The patient denies any nausea, vomiting or diarrhea but the patient has a cough and shortness a breath Past Medical History PAST MEDICAL HISTORY: Asthma, CHF, HTN Surgical History (Other): Back surgery, face surgery, left foot surgery Family History Family History: Unobtainable Social History Smoker: Non-Smoker Alcohol: Occasionally Drugs: Marijuana Lives In: Home Constitutional: denies: chills, diaphoresis, fatigue, fever, malaise, sweats, weakness, others EENTM: denies: blurred vision, double vision, ear bleeding, ear discharge, ear drainage, ear pain, ear ringing, eye pain, eye redness, hearing loss, mouth pain, mouth swelling, nasal discharge, nose bleeding, nose congestion, nose pain, photophobia, tearing, throat pain, throat swelling, voice changes, others Respiratory: reports: cough, shortness of breath; denies: hemoptysis, orthopnea, SOB at rest, SOB with excertion, stridor, wheezing, others Cardiovascular: reports: palpitations; denies: chest pain, dizzy spells, diaphoresis, Dyspnea on exertion, edema, irregular heart beat, left arm pain, lightheadedness, PND, syncope, others Gastrointestinal: denies: abdomen distended, abdominal pain, blood streaked bowels, constipated, diarrhea, dysphagia, difficulty swallowing, hematemesis, melena, nausea, poor appetite, poor fluid intake, rectal bleeding, rectal pain, vomiting, others Genitourinary: denies: burning, dysuria, flank pain, frequency, hematuria, incontinence, penile discharge, penile sore, pain, testicle pain, testicle swelling, urgency, others Neurological: denies: dizziness, fainting, headache, left sided numbness, left sided weakness, numbness, paresthesia, pre-existing deficit, right sided numbness, right sided weakness, seizure, speech problems, tingling, tremors, weakness, others Musculoskeletal: denies: back pain, gout, joint pain, joint swelling, muscle pain, muscle stiffness, neck pain, others Hematologic/Lymphatic: denies: anemia, blood clots, easy bleeding, easy bruising, swollen glands, others Endocrine: denies: excessive hunger, excessive sweating, excessive thirst, excessive urination, flushing, intolerance to cold, intolerance to heat, unexplained weight gain, unexplained weight loss, others Psychiatric: denies: anxiety, bipolar disorder, depression, hopeless, panic disorder, schizophrenia, sleepless, suicidal, others Physical Exam General Appearance: Moderate Distress HEENT: Normal ENT Inspection, Pharynx Normal, TMs Normal Neck: Full Range of Motion, Non-Tender, Normal, Normal Inspection Respiratory: Chest Non-Tender, Lungs Clear, No Accessory Muscle Use, No Respiratory Distress, Normal Breath Sounds Cardiovascular: No Edema, No JVD, No Murmur, No Gallop, Normal Peripheral Pulses, Regular Rate/Rhythm Breast Exam: Deferred Gastrointestinal: No Organomegaly, Non Tender, No Pulsatile Mass, Normal Bowel Sounds, Soft Genitalia: Deferred Pelvic: Deferred Rectal: Deferred Extremities: No calf tenderness, Normal capillary refill, Normal range of motion Musculoskeletal : Apperance: Normal Neurologic: Alert, stylist assistant II-XII nml as Tested, Motor Weakness, Normal Affect, Normal Mood, No Sensory Deficits Cerebellar Function: Normal Reflexes: Normal Skin: Dry, Normal Color, Warm Lymphatic: No Adenopathy Was a procedure done? Was a procedure done?: No Differential Dx Considerations may include: CHF, generalized weakness, pneumonia, generalized weakness X-Ray, Labs, Meds, VS Vital Signs Date Time Temp Pulse Resp B/P (MAP) Pulse Ox O2 Delivery O2 Flow Rate FiO2 08/06/25 16:46 158/73 08/06/25 16:45 97 Room Air* 0 21 08/06/25 16:44 17 Room Air 0 08/06/25 16:39 98.2 106 16 153/96 (115) 95 98.2 08/06/25 16:17 112 08/06/25 16:07 97.4 114 20 166/112 94 97.4 Lab Test 08/06/25 17:01 Range/Units White Blood Count 9.4 4.4-10.8 10^3/uL Red Blood Count 4.87 4.5-5.90 10^6/uL Hemoglobin 15.3 13.5-17.5 g/dL Hematocrit 45.3 41.0-53.0 % Mean Corpuscular Volume 93.0 80.0-100.0 fL Mean Corpuscular Hemoglobin 31.4 28.0-32.0 pg Mean Corpuscular Hemoglobin Concent 33.8 32.0-36.0 g/dL Red Cell Distribution Width 13.1 11.8-14.3 % Platelet Count 303 140-450 10^3/uL Mean Platelet Volume 7.8 6.9-10.8 fL Neutrophils (%) (Auto) 70.7 37.0-80.0 % Lymphocytes (%) (Auto) 17.8 10.0-50.0 % Monocytes (%) (Auto) 8.1 0.0-12.0 % Eosinophils (%) (Auto) 2.8 0.0-7.0 % Basophils (%) (Auto) 0.6 0.0-2.0 % Neutrophils # (Auto) 6.7 1.6-8.6 10 ^3/uL Lymphocytes # (Auto) 1.7 0.4-5.4 10 ^3/uL Monocytes # (Auto) 0.8 0-1.3 10 ^3/uL Eosinophils # (Auto) 0.3 0-0.8 10 ^3/uL Basophils # (Auto) 0.1 0-0.2 10 ^3/uL Nucleated Red Blood Cells 0.1 % Sodium Level 142 136-145 mmol/L Potassium Level 4.1 3.5-5.1 mmol/L Chloride Level 101 98-107 mmol/L Carbon Dioxide Level 30 20-31 mmol/L Anion Gap 11 5-15 Blood Urea Nitrogen 12 9-23 mg/dL Creatinine 1.02 0.700-1.30 mg/dL Glomerular Filtration Rate Calc 96 >90 mL/min BUN/Creatinine Ratio 11.8 10.0-20.0 Serum Glucose 134 H 74-106 mg/dL Calcium Level 9.7 8.7-10.4 mg/dL Troponin I High Sensitivity 13 </=54 ng/L B-Type Natriuretic Peptide 191.66 0-100 pg/mL Current Medications Medications (Trade) Dose Ordered Sig/Gi Route Start Time Stop Time Status Last Admin Furosemide (Lasix Injection) 40 mg ONCE ONCE IV 08/06/25 16:30 08/06/25 16:31 DC 08/06/25 16:46 Chest XR indicates: 1. Cardiomegaly and mild pulmonary vascular congestion. 2. Correlate clinically. The patient was given Lasix 40 mg IV push The CBC and chemistry panel are within normal limits The BNP is 191.66 The patient be admitted to hospitalist A cardiology consult will be obtained Images Reviewed?: Images reviewed and evaluated by me Time of 1ST Reevaluation: 19:01 Reevaluation 1ST: Unchanged Patient Education/Counseling: Diagnosis, Treatment, Prognosis Family Education/Counseling: No Family Present SEPSIS Sepsis Screen Date sepsis recognized/suspect: Aug 06, 2025 Time Sepsis recognized/suspect: 1609 Recent Procedure: No On Antibiotic Therapy: No Respiratory Rate >20: No Heart Rate >90: Yes Temp<36 C (96.8 F) or >38.3 C: No SBP <90 or MAP <65 mmHG: No New Acute Mental Status Change: No Is the patient on CPAP, BIPAP,: No Physician Orders Urinalysis (08/06/25 16:19) Chest Portable (08/06/25 16:19) Heplock Iv (08/06/25 16:19) Pulse Oximetry (08/06/25 16:19) Dealer Card Room (08/06/25 16:19) Blood Pressure (08/06/25 16:19) Troponin-I Hs (08/06/25 17:19) Troponin-I Hs (08/06/25 19:19) Vital Signs Date Time Temp Pulse Resp B/P (MAP) Pulse Ox O2 Delivery O2 Flow Rate FiO2 08/06/25 16:46 158/73 08/06/25 16:45 97 Room Air* 0 21 08/06/25 16:44 17 Room Air 0 08/06/25 16:39 98.2 106 16 153/96 (115) 95 98.2 08/06/25 16:17 112 08/06/25 16:07 97.4 114 20 166/112 94 97.4 Laboratory Tests Test 08/06/25 17:01 White Blood Count 9.4 10^3/uL (4.4-10.8) Medications Medications Dose Ordered Sig/Gi Route Start Time Stop Time Status Last Admin Dose Admin Furosemide 40 mg ONCE ONCE IV 08/06/25 16:30 08/06/25 16:31 DC 08/06/25 16:46 Departure 1 Departure Time of Disposition: 19:01 Impression: Primary Impression: Acute on chronic diastolic heart failure Disposition: 09 ADMITTED INPATIENT Admit to: Tele Condition: Fair Critical Care Note Critical Care Time?: No Stability Stability form required: Yes Unstable for transfer: Telemetry monitoring (Telemetry monitoring required), ED Physician Assesment (Clinical assesment) Heart Score Heart Score: Heart Score Response (Comments) Value History Moderate Suspicious 1 EKG Repolarization Disturb 1 Age <45 0 Risk Factors >3 or Hx ASHD 2 Troponin Normal limit 0 Total 4 I personally scribed for EVON YEAGER MD ([email or web address]) on 08/06/25 at 18:11. Electronically submitted by Kvng Gage ([email or web address]). EVON YEAGER MD Aug 06, 2025 16:54
[2025-08-06 17:21] LABS: Hematocrit 45.3 % (41.0-53.0); Hemoglobin 15.3 g/dL (13.5-17.5); Mean Corpuscular Hemoglobin 31.4 pg (28.0-32.0); Mean Corpuscular Volume 93.0 fL (80.0-100.0); Nucleated Red Blood Cells % 0.1 %
[2025-08-06 17:28] LABS: Chloride 101 mmol/L (98-107); Potassium 4.1 mmol/L (3.5-5.1); Sodium 142 mmol/L (136-145)
[2025-08-06 17:29] LABS: Anion Gap 11 (5-15); Carbon Dioxide 30 mmol/L (20-31)
[2025-08-06 17:30] LABS: Calcium 9.7 mg/dL (8.7-10.4)
[2025-08-06 17:35] LABS: BUN/Creatinine Ratio 11.8 (10.0-20.0); Blood Urea Nitrogen 12 mg/dL (9-23); Glucose 134 mg/dL (74-106)
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
[2025-08-06 21:18] LABS: Albumin 4.7 g/dL (3.2-4.8); Alkaline Phosphatase 88.0 U/L (46-116); Bilirubin, Direct 0.3 mg/dL (<0.3); Bilirubin, Total 0.8 mg/dL (0.2-1.0); Cholesterol 170.0 mg/dL (< 200); Magnesium 1.7 mg/dL (1.6-2.6)
[2025-08-06 21:21] LABS: Alanine Aminotransferase 66.0 U/L (7-40); HDL Cholesterol 37.0 mg/dL (40-59); Total Protein 8.3 g/dL (5.7-8.2); Triglycerides 225.0 mg/dL (< 150)
[2025-08-06 21:32] LABS: INR 1.06 (0.9-1.15); Partial Thromboplastin Time 27.6 SEC (24.5-34.5); Prothrombin Time 11.2 sec (9.3-11.8)
[2025-08-06 21:35] LABS: Urine Protein, UAD Negative (Negative)
[2025-08-06 21:35] LABS: Lipase 43.0 U/L (12-53)
[2025-08-06 21:58] LABS: Barbiturate Scree,Urine Neg (NEGATIVE); Opiate Scree,Urine Neg (NEGATIVE)
[2025-08-06 21:59] LABS: Amphetamine Screen, Urine Neg (NEGATIVE); Benzodiazephine Screen, Urine Neg (NEGATIVE); Cannabinoid Screen, Urine Neg (NEGATIVE); Cocaine Screen, Urine Neg (NEGATIVE); Phencyclidine Screen, Urine Neg (NEGATIVE)
[2025-08-06] MEDS ORDERED: ACETAMINOPHEN 325 MG TAB PO PRN (22:00)
[2025-08-06 22:46] VITALS: PULSE 88; RESP 24; O2SAT 93
[2025-08-06 22:57] VITALS: PULSE 90; RESP 18; O2SAT 98
[2025-08-06 23:03] VITALS: PULSE 95; RESP 20; O2SAT 97
[2025-08-06] MEDS: IPRATROPIUM BROM 0.5 MG/2.5ML INH SOL NEB PRN (23:05)
[2025-08-06] MEDS: ALBUTEROL SULF 2.5 MG/0.5ML(0.5%) NEB SOLN NEB PRN (23:05)
[2025-08-06 23:11] VITALS: BP 159/95; PULSE 95; RESP 20; TEMP 98.2; O2SAT 98
[2025-08-06] MEDS: ENOXAPARIN SOD 40 MG/0.4 ML SYRINGE SC SCH (23:17)
[2025-08-06] MEDS: PANTOPRAZOLE 40 MG/10 ML VIAL INJ IV ONE (23:17)
[2025-08-06] MEDS: SACUBITRIL-VALSARTAN 24mg/26mg TAB PO SCH (23:20)
[2025-08-06] MEDS: MORPHINE SULFATE INJ 2 MG/ml SYRG IV PRN (23:39)
[2025-08-06] MEDS: MORPHINE SULFATE 4 MG/ML SYR/VIAL ONE (23:49)
[2025-08-07] VITALS (16 sets, daily range): BP systolic 122–144; BP diastolic 76–91; PULSE 78–105; RESP 18–25; TEMP 97.7–98.1; O2SAT 2–100
[2025-08-07 04:31] LABS: Hematocrit 45.2 % (41.0-53.0); Hemoglobin 15.8 g/dL (13.5-17.5); Mean Corpuscular Hemoglobin 31.8 pg (28.0-32.0); Mean Corpuscular Volume 91.0 fL (80.0-100.0); Nucleated Red Blood Cells % 0.1 %
[2025-08-07 04:59] LABS: Albumin 4.6 g/dL (3.2-4.8); Alkaline Phosphatase 84 U/L (46-116); Anion Gap 11 (5-15); BUN/Creatinine Ratio 13.1 (10.0-20.0); Blood Urea Nitrogen 13 mg/dL (9-23); Calcium 9.3 mg/dL (8.7-10.4); Carbon Dioxide 28 mmol/L (20-31); Chloride 102 mmol/L (98-107); Potassium 3.8 mmol/L (3.5-5.1); Sodium 141 mmol/L (136-145); Total Protein 8.1 g/dL (5.7-8.2)
[2025-08-07 05:23] LABS: Alanine Aminotransferase 60 U/L (7-40); Bilirubin, Total 1.4 mg/dL (0.2-1.0); Glucose 142 mg/dL (74-106)
[2025-08-07] MEDS: FUROSEMIDE 40 MG/4 ML VIAL IV SCH (05:30)
[2025-08-07] MEDS: MORPHINE SULFATE 4 MG/ML SYR/VIAL IV PRN (07:20)
[2025-08-07] MEDS: LEVALBUTEROL HCL 1.25 MG/3 ML NEB NEB SCH (07:24)
[2025-08-07] MEDS: LACTULOSE 20Gm/30ML SOLN PO SCH (09:39)
[2025-08-07] MEDS: EMPAGLIFLOZIN 10 MG TAB PO SCH (09:39)
[2025-08-07] MEDS: GABAPENTIN 300 MG CAP PO SCH (09:39)
[2025-08-07] MEDS: METOPROLOL SUCCINATE XL 50 MG TAB PO SCH (09:41)
[2025-08-07] MEDS: PANTOPRAZOLE 40 MG/10 ML VIAL INJ IV SCH (09:56)
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
[2025-08-07 11:39] LABS: Hepatitis B Surface Antigen Negative (Negative)
[2025-08-07] MEDS: IPRATROPIUM BROM 0.5 MG/2.5ML INH SOL NEB SCH (12:02)
--- NOTE | 2025-08-07 12:50 | DVH ---
INDICATION: Abdominal sweliing TECHNIQUE: Multiple real-time sonographic images of the abdomen were obtained. COMPARISON: None FINDINGS: INCREASED ECHOGENICITY OF THE HEPATIC PARENCHYMA CONSISTENT WITH STEATOSIS.. The liver kimmy ures 19.8 cm. No intrahepatic biliary ductal dilatation is noted. The gallbladder wall measures 0.2 cm and is unremarkable. No gallstones or sludge is seen. The com mon duct NOT VISUALIZED. No pericholecystic fluid is noted. NEGATIVE SONOGRAPHIC EGAN'S SIGN The right kidney measures 9 cm. No hydronephrosis. The pancreas is not well visualized due to obscuration from bowel gas. The visualized portions of the IVC and aorta are grossly unremarkable. IMPRESSION: 1. HEPATOMEGALY WITH STEATOSIS 2. GALLBLADDER APPEARS NEGATIVE 3. CBD NOT VISUALIZED. 4. RIGHT KIDNEY MEASURES 10.9. HS:Y
[2025-08-07 12:56] LABS: Hepatitis C Antibody Negative (Negative)
[2025-08-07 13:53] LABS: Hepatitis B Surface Antigen Negative (Negative); Hepatitis C Antibody Negative (Negative)
[2025-08-07] MEDS: ERGOCALCIFEROL 50,000 UNIT(1.25MG) CAP PO SCH (13:59)
[2025-08-07] MEDS: BUDESONIDE (INHALATION) 0.5 MG/2 ML NEB NEB SCH (23:39)
[2025-08-08] VITALS (14 sets, daily range): BP systolic 112–127; BP diastolic 79–89; PULSE 79–91; RESP 18–22; TEMP 97.4–98.8; O2SAT 93–100
--- NOTE | 2025-08-08 01:02 | DVHSR ---
APPROVED REPORT EXAM: Two-dimensional and M-mode echocardiogram with Doppler and color Doppler. Blood Pressure: 144/76 mmHg INDICATION SOB, HFrEF RISK FACTORS Height: 71, Weight: 296 DIMENSIONS LVDd6.1 (3.8-5.7cm)LA (2D)5.2 (1.9-4.0cm)Aortic Root3.6 (2.0-3.7cm) LVDs5.5 (2.5-4.0cm)LA (MM) (1.9-4.0cm)Aortic Cusp Exc2.1 (1.5-2.0cm) EF (%) 20.0 (55-70%)Rt. Atrium5.7 (1.9-4.0cm)Asc. Aorta cm IVSd1.2 (0.7-1.1cm)RV (D) (1.8-2.4cm) PWd1.4 (0.7-1.1cm) Mitral Valve MitralMitral Stenosis E wave0.78m/sMV Mean GR.mmHg A wave0.31m/sMV Peak GR.mmHg E/A ratio2.52D MVAcm2 DECEL [id number] 1/2 Lont02yd IVRTmsDop MVA6.93cm2 Aortic Valve Aortic ValveAortic Stenosis V10.76m/Renuka Mean GR.1mmHg V20.76m/Renuka Peak GR.2mmHg LVOT Diameter2.6 (1.8-2.4cm)Doppler AVA5.31cm2 Pulmonic Valve V20.64m/s Tricuspid Valve TR Velocity2.16m/s [id number] Other Information Technically limited study due to body habitus. Conclusion DILATED ALL CARDIAC CHAMBERS SEVERE GLOBAL HYPOKINESIS LV EF IS ONLY 15% NORMAL VALVES NO EFFUSION
[2025-08-08] MEDS: AMIODARONE HCL 200 MG TAB PO ONE (03:44)
[2025-08-08] MEDS: PANTOPRAZOLE 40 MG TAB PO SCH (05:48)
[2025-08-08 06:59] LABS: Hematocrit 49.4 % (41.0-53.0); Hemoglobin 16.9 g/dL (13.5-17.5); Mean Corpuscular Hemoglobin 31.7 pg (28.0-32.0); Mean Corpuscular Volume 92.7 fL (80.0-100.0); Nucleated Red Blood Cells % 0.1 %
[2025-08-08 07:10] LABS: Anion Gap 14 (5-15); Carbon Dioxide 27 mmol/L (20-31); Chloride 102 mmol/L (98-107); Potassium 3.9 mmol/L (3.5-5.1); Sodium 143 mmol/L (136-145)
[2025-08-08 07:11] LABS: Calcium 9.6 mg/dL (8.7-10.4)
[2025-08-08 07:16] LABS: BUN/Creatinine Ratio 12.0 (10.0-20.0); Blood Urea Nitrogen 12 mg/dL (9-23); Magnesium 2.4 mg/dL (1.6-2.6)
[2025-08-08 07:19] LABS: Glucose 126 mg/dL (74-106)
[2025-08-08 07:51] LABS: COVID19 ANTIGEN SOFIA FIA NEGATIVE (NEGATIVE)
[2025-08-08] MEDS: AMIODARONE HCL 200 MG TAB PO SCH (10:00)
[2025-08-08] MEDS ORDERED: FLUT1AER17 IN (13:08)
[2025-08-08] MEDS ORDERED: FURO1TAB33 PO (13:11)
[2025-08-08] MEDS ORDERED: IBU600T PO (13:20)
--- NOTE | 2025-08-08 13:24 | DVHINCON2 ---
Date of service: Aug 08, 2025 History of Present Illness 40 yo M with hx of CHF EF 45%, down to 30% now down to 15% admitted for ADHF. i see pt in [place] [facility]. he is recommended for ischemic eval with [facility]. Past Medical History reviewed Family History: Family history: Asthma G8 FATHER Family history: Hypertension G8 MOTHER G8 FATHER Allergies: Coded Allergies: NO KNOWN ALLERGIES (Unverified , 08/06/25) Home Meds Active Scripts Prednisone (PREDNISONE) 5 Mg Tb, 5 MG GT DAILY, #5 Prov:SHARI VILLEGAS MD 05/12/17 Reported Medications Ibuprofen Micronized (MOTRIN TABLET) 600 Mg Tb, 800 MG PO TID PRN for PAIN SCALE 7 THRU 10, #40 TAB *Black box warning-NSAIDS can increase risk of MT & hypertension, GI irritation, ulceration, bleed, perferation. Do not use post cardiac surgery. Use short duration/lowest effective dose. 08/08/25 Furosemide (Lasix) 20 Mg Tb, 1 TAB PO DAILY, #90 TAB 1 Refill 08/08/25 Ifmbbfjsjnh-Jjohzcivfqor-Yyzpp (Trelegy Ellipta 200-62.5-25 Mcg/INH) 1 Aer Aer, 1 AER IN DAILY, AER 08/08/25 Montelukast Sodium (Singulair) 4 Mg Chw, 1 TAB PO DAILY, #30 TAB 5 Refills 05/11/17 Fluticasone-Salmeterol (Advair Diskus 250/50) 1 Puff Ih, 1 PUFF INH BID, #3 INHALER 3 Refills 07/09/16 Ipratropium K[place] (Atrovent) 0.06 % Daisy, 2 SPRAY NA QID, #15 ML 5 Refills 07/09/16 Ipratropium-Albuterol (Combivent) Aer, 1 IN, AER 07/09/16 Albuterol Sulfate (Albuterol Sulfate) 0.083 % Neb, 0.083 % IN 07/09/16 Current Medications Current Medications Medications (Trade) Dose Ordered Sig/Gi Route PRN Reason Start Time Stop Time Status Last Admin Pantoprazole Sodium (Protonix Tablet) 40 mg DAILY@0600 PO 08/08/25 06:00 08/08/25 05:48 Budesonide (Pulmicort) 0.25 mg BID NEB 10/3/25 22:00 08/08/25 07:29 Amiodarone HCl (Cordarone Tablet) 400 mg Q12HR PO 08/08/25 10:00 08/08/25 10:00 Review of Systems 10 pt ros otherwise negative Vital Signs Vital Signs Date Time Temp Pulse Resp B/P (MAP) Pulse Ox O2 Delivery O2 Flow Rate FiO2 08/08/25 12:49 98.8 87 18 124/88 (100) 97 98.8 08/08/25 07:15 Nasal Cannula* 2 28 Physical Exam nad s1 s2 rrr ctab softn nt/nd Labs/Diagnostic Data Labs Test 08/08/25 06:51 08/08/25 06:15 08/07/25 05:42 08/07/25 03:59 Range/Units B-Type Natriuretic Peptide 101.56 0-100 pg/mL White Blood Count 9.4 4.4-10.8 10^3/uL Red Blood Count 5.33 4.5-5.90 10^6/uL Hemoglobin 16.9 13.5-17.5 g/dL Hematocrit 49.4 41.0-53.0 % Mean Corpuscular Volume 92.7 80.0-100.0 fL Mean Corpuscular Hemoglobin 31.7 28.0-32.0 pg Mean Corpuscular Hemoglobin Concent 34.2 32.0-36.0 g/dL Red Cell Distribution Width 12.9 11.8-14.3 % Platelet Count 321 140-450 10^3/uL Mean Platelet Volume 8.0 6.9-10.8 fL Neutrophils (%) (Auto) 70.6 37.0-80.0 % Lymphocytes (%) (Auto) 17.6 10.0-50.0 % Monocytes (%) (Auto) 7.8 0.0-12.0 % Eosinophils (%) (Auto) 3.3 0.0-7.0 % Basophils (%) (Auto) 0.7 0.0-2.0 % Neutrophils # (Auto) 6.6 1.6-8.6 10 ^3/uL Lymphocytes # (Auto) 1.6 0.4-5.4 10 ^3/uL Monocytes # (Auto) 0.7 0-1.3 10 ^3/uL Eosinophils # (Auto) 0.3 0-0.8 10 ^3/uL Basophils # (Auto) 0.1 0-0.2 10 ^3/uL Nucleated Red Blood Cells 0.1 % Sodium Level 143 136-145 mmol/L Potassium Level 3.9 3.5-5.1 mmol/L Chloride Level 102 98-107 mmol/L Carbon Dioxide Level 27 20-31 mmol/L Anion Gap 14 5-15 Blood Urea Nitrogen 12 9-23 mg/dL Creatinine 1.00 0.700-1.30 mg/dL Glomerular Filtration Rate Calc 98 >90 mL/min BUN/Creatinine Ratio 12.0 10.0-20.0 Serum Glucose 126 H 74-106 mg/dL Calcium Level 9.6 8.7-10.4 mg/dL Magnesium Level 2.4 1.6-2.6 mg/dL SARS-CoV-2 Antigen (Rapid) Negative NEGATIVE Total Bilirubin 1.4 H 0.2-1.0 mg/dL Aspartate Amino Transferase (AST) 36 13-40 U/L Alanine Aminotransferase (ALT) 60 H 7-40 U/L Alkaline Phosphatase 84 46-116 U/L Total Protein 8.1 5.7-8.2 g/dL Albumin 4.6 3.2-4.8 g/dL Hepatitis A IgM Antibody Negative Hepatitis B Surface Antigen Negative Negative Hepatitis B Core IgM Antibody Negative Negative Hepatitis C Antibody Negative Negative Test 08/06/25 20:42 08/06/25 18:41 08/06/25 17:01 Range/Units Urine Color Light-yellow Yellow Urine Clarity Clear Clear Urine pH 5.5 5.0-9.0 Urine Specific [place] 1.014 1.001-1.035 Urine Protein Negative Negative Urine Ketones Negative Negative Urine Blood Negative Negative /uL Urine Nitrite Negative Negative Urine Bilirubin Negative Negative Urine Urobilinogen Normal Negative mg/dL Urine Leukocyte Esterase Negative Negative /uL Urine RBC 1 0 - 3 /hpf Urine Microscopic WBC < 1 0-3 /HPF Urine Squamous Epithelial Cells None seen <5 /hpf Urine Bacteria None seen None Seen /hpf Urine Glucose Normal Normal mg/dL Urine Opiates Screen Neg NEGATIVE Urine Fentanyl Screen Neg NEGATIVE Urine Barbiturates Screen Neg NEGATIVE Urine Phencyclidine Screen Neg NEGATIVE Urine Amphetamines Screen Neg NEGATIVE Urine Benzodiazepines Screen Neg NEGATIVE Urine Cocaine Screen Neg NEGATIVE Urine Cannabinoids Screen Neg NEGATIVE Phosphorus Level 2.9 2.4-5.1 mg/dL Direct Bilirubin 0.3 <0.3 mg/dL Troponin I High Sensitivity 13 </=54 ng/L C-Reactive Protein High Sensitivity 0.98 <1.0 mg/dL Triglycerides Level 225 H < 150 mg/dL Cholesterol Level 170 < 200 mg/dL LDL Cholesterol 117 H < 100 mg/dL HDL Cholesterol 37 L 40-59 mg/dL Lipase 43 12-53 U/L Prothrombin Time 11.2 9.3-11.8 sec Prothrombin Time INR 1.06 0.9-1.15 Activated Partial Thromboplast Time 27.6 24.5-34.5 SEC Hemoglobin A1c 5.9 H <5.7 % A1C Vitamin B12 Level 374 211-911 pg/mL Vitamin D 25-Hydroxy 11.3 L 30.0-100 ng/mL Thyroid Stimulating Hormone (TSH) 3.30 0.55-4.78 uIU/mL Assessment severe chf obesity htn hl Plan/Recommendation ro drug abuse start GDMT for chf iv lasix check echo --ef 15% LHC planned , informed consent obtained Plan discussed with: Patient ROB LOPES MD Aug 08, 2025 13:24
--- NOTE | 2025-08-08 13:37 | DVHPNRES ---
Progress Note Date Seen: Aug 08, 2025 Resident Creating Document: ALMAS QUEEN RESIDENT Medical Necessity Reason Pt with a Central, PICC or Fol: No (RN) Subjective Review of Systems Patient was seen and examined at bedside. Overnight events: NSVT episode, started amiodarone oral. He reports improvement in his shortness of breath after taking IV Lasix. No new complaints reported. Objective vital signs Vital Sign Date Time Temp Pulse Resp B/P (MAP) Pulse Ox O2 Delivery O2 Flow Rate FiO2 08/08/25 12:49 98.8 87 18 124/88 (100) 97 98.8 08/08/25 07:15 Nasal Cannula* 2 28 Total Intake and Output 08/07/25 08/07/25 08/08/25 15:00 23:00 07:00 Intake Total 210 ml 210 ml 620 ml Output Total 600 ml 1350 ml Balance 210 ml -390 ml -730 ml medications Current Medications Medications Dose Ordered Sig/Gi Route Start Time Stop Time Status Last Admin Dose Admin Acetaminophen 325 mg Q4HP PRN PO 08/06/25 22:00 Enoxaparin Sodium 40 mg DAILY SC 08/06/25 22:00 08/08/25 10:03 40 MG Furosemide 40 mg BIDD IV 08/07/25 06:00 08/08/25 05:50 40 MG Sacubitril/ Valsartan 1 tab BID PO 08/06/25 22:00 08/08/25 10:00 1 TAB Metoprolol Succinate 50 mg DAILY PO 08/07/25 10:00 08/08/25 10:01 50 MG Lactulose 15 ml DAILY PO 08/07/25 10:00 Gabapentin 300 mg DAILY PO 08/07/25 10:00 Levalbuterol HCl 0.625 mg Q6HR NEB 08/07/25 06:00 08/08/25 12:22 0.625 MG Empaglifozin 10 mg DAILY PO 08/07/25 10:00 08/08/25 10:01 10 MG Morphine Sulfate 2 mg Q4HPRN PRN IV 08/07/25 06:30 08/08/25 06:03 2 MG Ergocalciferol 50,000 unit Q7D PO 08/07/25 10:45 08/07/25 13:59 50,000 UNIT Ipratropium [place] 0.5 mg Q6HR NEB 08/07/25 12:00 08/08/25 12:21 0.5 MG Pantoprazole Sodium 40 mg DAILY@0600 PO 08/08/25 06:00 08/08/25 05:48 40 MG Budesonide 0.25 mg BID NEB 08/07/25 22:00 08/08/25 07:29 0.25 MG Amiodarone HCl 400 mg Q12HR PO 08/08/25 10:00 08/08/25 10:00 400 MG Examination Pt is lying on bed General Appearance: Alert, Oriented X3, Cooperative, Mild distress HEENT: Atraumatic, Mucous membranes moist/pink Respiratory: Bilateral basal crackles, Normal air movement, No added sounds Cardiovascular: Regular rate, Normal S1, Normal S2, No murmurs, no JVD, no S3 Abdominal/ : Active bowel sounds, Soft, no distention, no tenderness Extremities: Trace pitting edema, Normal pulses, No tenderness/swelling Skin: No Significant rash, except past surgical scars Neuro: Normal speech, sensorimotor deficits none Psych/Mental Status: Mental status NL, Mood NL laboratory and microbiology Laboratory Tests 08/08/25 06:15 Test 08/08/25 06:15 Range/Units Serum Glucose 126 H 74-106 mg/dL Labs and/or images reviewed: Labs reviewed by me, Image(s) reviewed by me Problem List/Assessment/Plan Problem List/Assessment/Plan #Acute hypoxic respiratory failure likely due to CHF #Acute on chronic congestive systolic heart failure, ?HFrEF #History of hypertension CXR shows cardiomegaly, pulmonary vascular congestion EKG shows sinus tachycardia, left atrial enlargement, T-wave abnormalities and borderline prolonged QT interval BNP 191, possibility of falsely low BNP in obese patient Patient reported LVEF 30% in January 2025. Repeat Echocardiogram shows EF 15% On oxygen therapy with nasal cannula at 2 L/min IV furosemide 40 mg b.i.d.; titrate based on I&O GDMT continued with Entresto, metoprolol succinate. Continue on Jardiance; - cardiology consulted for probable ischemic workup, LHC to be performed on Sunday08/10/[address] Mauricio, NPO after midnight Strict I&O, sodium restriction #Nonsustained V-tach Amiodarone 400 mg po bid Keep telemetry Maintain K >4 and MG >2 #History of asthma, no acute exacerbation - on duonebs - budesonide inhalation bid #Peripheral neuropathy Continue gabapentin 300 mg HS #Chronic constipation Continue lactulose #Obesity class 2 #BMI 39.2 Counseled on lifestyle and diet Monitor for WILLIAMS complication, CPAP ordered #Noncompliance Noncompliance to Entresto due to cost issues #Metabolic syndrome #Prediabetes #Dyslipidemia A1c 5.9 Elevated TG, low HDL Advised Weight loss and lifestyle changes #Transaminitis Hepatitis panel negative Liver ultrasound: Hepatomegaly with steatosis, gallbladder negative, CBD not visualized, right kidney measures 10.9 Monitor labs #Vitamin-D deficiency Repleted GI prophylaxis: Pantoprazole DVT prophylaxis: Lovenox Diet: Cardiac Goals of care discussed with the patient for more than 33 minutes: Full code status Case discussed with Dr. Conway Plan discussed with: Patient, Other (RN) My Orders My Orders Orders - ALMAS QUEEN RESIDENT Procedure Category Date Status Time Basic Metabolic Panel LAB 08/09/25 Verified 04:00 Magnesium LAB 08/09/25 Verified 04:00 Chest Portable XY 08/09/25 Logged 04:00 * Cardiology Consult CONS 08/08/25 Transmitted 11:38 Type And Screen BBK 08/08/25 In Process 12:04 Npo (Nothing By DIET 08/10/25 Transmitted Mouth) Diet Breakfast Date of Service: Aug 08, 2025 Billing Provider: WIN CONWAY MD Common Visit Codes: [id number] INP/OBS CARE(HIGH) ALMAS QUEEN RESIDENT Aug 08, 2025 13:37 WIN CONWAY MD Aug 12, 2025 20:46
[2025-08-09] VITALS (22 sets, daily range): BP systolic 109–140; BP diastolic 75–98; PULSE 69–96; RESP 14–22; TEMP 97.3–97.6; O2SAT 89–100
--- NOTE | 2025-08-09 07:07 | DVH ---
CHEST RADIOGRAPH Indication: sob Technique: Single frontal view of the chest was obtained Comparison: XY CHEST PORTABLE on DOS: 08/06/25, XY CHEST PORTABLE on DOS: 10/11/24, XR CHEST 2 VIEWS on DOS: 12/07/23 IMPRESSION: Heart is prominent in size. The lungs appear relatively clear without focal airspace opacity, effusi on, or pneumothorax.
[2025-08-09 07:16] LABS: Anion Gap 13 (5-15); Carbon Dioxide 28 mmol/L (20-31); Chloride 103 mmol/L (98-107); Potassium 4.0 mmol/L (3.5-5.1); Sodium 144 mmol/L (136-145)
[2025-08-09 07:18] LABS: Calcium 9.7 mg/dL (8.7-10.4)
[2025-08-09 07:23] LABS: BUN/Creatinine Ratio 18.2 (10.0-20.0); Blood Urea Nitrogen 20 mg/dL (9-23)
[2025-08-09 07:24] LABS: Glucose 119 mg/dL (74-106); Magnesium 2.6 mg/dL (1.6-2.6)
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
[2025-08-09] MEDS: DOCUSATE SOD 100 MG CAP PO SCH (21:18)
[2025-08-10] VITALS (23 sets, daily range): BP systolic 105–130; BP diastolic 69–90; PULSE 72–92; RESP 14–19; TEMP 97–98; O2SAT 92–99
[2025-08-10 07:02] LABS: Hematocrit 51.9 % (41.0-53.0); Hemoglobin 17.4 g/dL (13.5-17.5); Mean Corpuscular Hemoglobin 31.5 pg (28.0-32.0); Mean Corpuscular Volume 93.6 fL (80.0-100.0); Nucleated Red Blood Cells % 0.1 %
[2025-08-10 07:10] LABS: Chloride 103 mmol/L (98-107); Potassium 4.1 mmol/L (3.5-5.1); Sodium 142 mmol/L (136-145)
[2025-08-10 07:11] LABS: Anion Gap 12 (5-15); Calcium 9.3 mg/dL (8.7-10.4); Carbon Dioxide 27 mmol/L (20-31)
[2025-08-10 07:16] LABS: BUN/Creatinine Ratio 14.2 (10.0-20.0); Blood Urea Nitrogen 17 mg/dL (9-23); Glucose 117 mg/dL (74-106)
[2025-08-10] MEDS: IODIXANOL 320MG/ML 100ML BTL IV ONE (09:35)
--- NOTE | 2025-08-10 10:13 | DVHPN2 ---
Progress Note Date Seen: Aug 10, 2025 Medical Necessity Reason Pt with a Central, PICC or Fol: No (RN) Subjective Patient reports: Feels better Objective vital signs Vital Sign Date Time Temp Pulse Resp B/P (MAP) Pulse Ox O2 Delivery O2 Flow Rate FiO2 08/10/25 09:00 97.7 77 18 111/75 (87) 99 97.7 08/10/25 06:08 Nasal Cannula* 1 24 Total Intake and Output 08/09/25 08/09/25 08/10/25 15:00 23:00 07:00 Intake Total 315 ml 920 ml 600 ml Output Total 1150 ml 825 ml Balance 315 ml -230 ml -225 ml medications Current Medications Medications Dose Ordered Sig/Gi Route Start Time Stop Time Status Last Admin Dose Admin Acetaminophen 325 mg Q4HP PRN PO 08/06/25 22:00 Enoxaparin Sodium 40 mg DAILY SC 08/06/25 22:00 08/09/25 10:55 40 MG Furosemide 40 mg BIDD IV 08/07/25 06:00 08/10/25 05:23 40 MG Sacubitril/ Valsartan 1 tab BID PO 08/06/25 22:00 08/09/25 21:17 1 TAB Metoprolol Succinate 50 mg DAILY PO 08/07/25 10:00 08/09/25 10:57 50 MG Lactulose 15 ml DAILY PO 08/07/25 10:00 08/09/25 10:55 15 ML Gabapentin 300 mg DAILY PO 08/07/25 10:00 Levalbuterol HCl 0.625 mg Q6HR NEB 08/07/25 06:00 08/10/25 06:06 0.625 MG Empaglifozin 10 mg DAILY PO 08/07/25 10:00 08/09/25 10:57 10 MG Morphine Sulfate 2 mg Q4HPRN PRN IV 08/07/25 06:30 08/09/25 21:17 2 MG Ergocalciferol 50,000 unit Q7D PO 08/07/25 10:45 08/07/25 13:59 50,000 UNIT Ipratropium [place] 0.5 mg Q6HR NEB 08/07/25 12:00 08/10/25 06:06 0.5 MG Pantoprazole Sodium 40 mg DAILY@0600 PO 08/08/25 06:00 08/09/25 06:53 40 MG Budesonide 0.25 mg BID NEB 08/07/25 22:00 08/09/25 22:14 0.25 MG Docusate Sodium 100 mg BID PO 08/09/25 22:00 08/09/25 21:18 100 MG Amiodarone HCl 200 mg Q12HR PO 08/10/25 10:00 Examination: GENERAL:Abnormal, HEENT:Abnormal, LUNGS:Abnormal, CVS:Abnormal, ABDOMEN:Abnormal laboratory and microbiology Laboratory Tests 08/10/25 05:52 Test 08/10/25 05:52 Range/Units Serum Glucose 117 H 74-106 mg/dL Problem List/Assessment/Plan Problem List/Assessment/Plan NICM---sp cath , no cad, lvedp is high, cont lasix diuresis start GDMT for HF on entresto, jardiance, and lasix recommkend lifevest given severe chf and initiation of GDMT for 3 months Plan discussed with: Patient My Orders My Orders Orders - ROB LOPES MD Procedure Category Date Status Time Industrial Energy Engineer: Obtain ORDERS 08/10/25 Transmitted Consent For: 07:39 Cl Left Heart Cath CL 08/10/25 Logged 08:09 Cardiac DIET 08/10/25 Transmitted Diet-2gna,Lofat,Lochol Breakfast Dietary Evaluation Review Recommendations by RD: Dietary education by RD, Protein Supplementation Comments: 1) Initiate Glucerna qd 2) Add 45g CCHO restriction to cardiac diet 3) Refer to outpatient RD/CDCES for weight management 4) Follow-up with cardiology 5) Continue to monitor I&O, labs, and skin integrity Expected Outcomes/Goals: 1) appetite and labs to improve 2) gradual wt loss 3) f/u in 3-5 days Date of Service: Aug 10, 2025 Billing Provider: ROB LOPES MD Common Visit Codes: NOT BILLABLE ROB LOPES MD Aug 10, 2025 10:13
[2025-08-10] MEDS: fentaNYL CITRATE 100 MCG/2 ML VL ONE (10:14)
[2025-08-10] MEDS: VERAPAMIL 2.5MG/ML INJ 2ML VIAL IV ONE (10:15)
[2025-08-10] MEDS: NITROGLYCERIN 50MG/250ML 250 ML IV ONE (10:16)
[2025-08-10] MEDS: SODIUM CHL 0.9% 0 ML ONE (10:16)
[2025-08-10] MEDS: MIDAZOLAM HCL 2MG/2ML 2ml VIAL (1mg/ml) ONE (10:16)
[2025-08-10] MEDS: LIDOCAINE 2%HCL (LOCAL ANESTH.) INJ 20ML MDV ONE (10:16)
[2025-08-10] MEDS: ANGIOMAX 250 MG VIAL IV ONE (10:16)
--- NOTE | 2025-08-10 10:16 | DVHOP2 ---
Operative Report Operative Report CARDIAC SHERIFF PROCEDURE REPORT [place], [place] Date of Service: 08/10/25 [place] Staff Member: Rob Lopes MD PROCEDURES PERFORMED: Coronary angiogram, left heart catheterization, conscious sedation administration and supervision, less than 15 minutes; fluoroscopy use and interpretation. PREOPERATIVE DIAGNOSES: Abnormal stress test with CCS class 3 angina, POSTOP DIAGNOSIS: DESCRIPTION OF PROCEDURE: The patient or appropriate family signed informed consent understanding the risks, benefits and alternatives of the procedure, they wished to proceed. The patient was brought to the cardiac physical laboratory assistant in n.p.o. state. The patient was prepped in a sterile fashion. Sedation was used per cardiac cath protocol. I administered 2 mL of 2% lidocaine to the right wrist. With an antegrade front wall puncture. I cannulated the right radial artery and placed a 6-Portuguese Glidesheath slender. Next, an intra-arterial spasmolytic was administered. Next, a - 6[place] catheter apigtail were used for coronary angiogram and LVEDP measurement and pressure pullback. At the completion of procedure, all guides and wires were removed, and there were no immediate complications. FINDINGS: RCA: large vessel off the right sinus of Valsalva, there is no severe flow limiting stenosis. LEFT MAIN: large size left main, it bifurcates into LAD and circumflex. no stenosis CIRCUMFLEX: Moderate caliber vessel coming off the left main with no flow limiting stenosis. LAD: LAD is a moderate caliber vessel coming of the left main. no stenosis lvedp of 22 mmhg CONCLUSIONS: 1. NICM, no cad 2. elevated LVEDP PLAN: Aggressive risk factor modification and medical management for the patient. GMDT with nita sweeney x 3 months ROB LOPES MD Aug 10, 2025 10:16
[2025-08-10] MEDS: HEPARIN SODIUM (PORCINE) 5000 UNITS/ML 1ML VIAL ONE (10:17)
[2025-08-10] MEDS: AMIODARONE HCL 200 MG TAB PO SCH (11:37)
[2025-08-10] MEDS: SPIRONOLACTONE 25 MG TAB PO ONE (11:39)
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
[2025-08-11] VITALS (12 sets, daily range): BP systolic 109–117; BP diastolic 68–87; PULSE 67–94; RESP 16–18; TEMP 97–97.8; O2SAT 88–100
[2025-08-11] MEDS: SPIRONOLACTONE 25 MG TAB PO SCH (09:41)
[2025-08-11] MEDS ORDERED: POTA-36 PO (13:04)
[2025-08-11] MEDS ORDERED: FURO40TA4 PO (13:04)
[2025-08-11] MEDS ORDERED: METO-6 PO (13:04)
[2025-08-11] MEDS ORDERED: EMPA1TAB PO (13:04)
[2025-08-11] MEDS ORDERED: SACU1TAB PO (13:04)
[2025-08-11] MEDS ORDERED: ERGO1CAP23 PO (13:04)
[2025-08-11] MEDS ORDERED: AMIO200T13 PO (13:04)
[2025-08-11] MEDS ORDERED: SPIR25TA PO (13:04)
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
== END 2025-08-11 17:12 | disposition home or self-care (01) | DRG 192 ==
LOC: ER 16:05 → OVERFLOW 21:54 → TELE-CENTR 08-07 10:40
PROVIDERS: ADMIT Internal Medicine Geriatric Medicine; ATTEND Internal Medicine Geriatric Medicine
PROC: 5A09357 Assistance with Respiratory Ventilation, Less than 24 Consecutive Hours, Continuous Positive Airway Pressure (ICD-10-PCS; 2025-08-09)
PROC: 4A023N7 Measurement of Cardiac Sampling and Pressure, Left Heart, Percutaneous Approach (ICD-10-PCS; principal; 2025-08-10)
PROC: B211YZZ Fluoroscopy of Multiple Coronary Arteries using Other Contrast (ICD-10-PCS; 2025-08-10)
PROC: 5A09357 Assistance with Respiratory Ventilation, Less than 24 Consecutive Hours, Continuous Positive Airway Pressure (ICD-10-PCS; 2025-08-10)
DX: I11.0 Hypertensive heart disease with heart failure (principal); J96.01 Acute respiratory failure with hypoxia; I47.20 Ventricular tachycardia, unspecified; R16.0 Hepatomegaly, not elsewhere classified; I42.8 Other cardiomyopathies; I50.43 Acute on chronic combined systolic (congestive) and diastolic (congestive) heart failure; G62.9 Polyneuropathy, unspecified; E78.5 Hyperlipidemia, unspecified; E55.9 Vitamin D deficiency, unspecified; E88.810 Metabolic syndrome; E66.812 Obesity, class 2; J45.909 Unspecified asthma, uncomplicated; R74.01 Elevation of levels of liver transaminase levels; K59.09 Other constipation; F19.10 Other psychoactive substance abuse, uncomplicated; I45.81 Long QT syndrome; K76.0 Fatty (change of) liver, not elsewhere classified; G47.33 Obstructive sleep apnea (adult) (pediatric); Z68.39 Body mass index [BMI] 39.0-39.9, adult; Z82.5 Family history of asthma and other chronic lower respiratory diseases; Z82.49 Family history of ischemic heart disease and other diseases of the circulatory system; Z91.199 Patient's noncompliance with other medical treatment and regimen due to unspecified reason
CPT/HCPCS: 36415; 71045; 76705; 80048; 80053; 80061; 80074; 80076; 80307; 81001; 82306; 82607; 83036; 83690; 83735; 83880; 84100; 84443; 84484; 85025; 85610; 85730; 86141; 86803; 86850; 86900; 86901; 87340; 87426; 93005; 93306; 93458; 94640; 94660; 96374; 99152; G0378; J2250; J2470; Q9967